=== PATIENT | male | born 1930 | race Two or more races ===

== ENCOUNTER 2020-03-19 13:36 | Inpatient (IN) | payer MEDICARE, OTHER ==
[2020-03-19] VITALS (8 sets, daily range): BP systolic 109–128; BP diastolic 40–53
[~2020-03-19] VITALS: Ht 170.2 cm; Wt 78.8 kg
[~2020-03-19 13:36] MED LIST: ALBUAER3 IN; ATOR20TA PO; CARV25TA55 PO; DOXY-286 PO; FLUC200T35 PO; FURO1TAB33 PO; LINA5TAB PO; LISI40TA PO; MINO10TA2 PO; PANT40T PO
[2020-03-19 14:31] LABS: Basophils # (auto) 0 10 ^3/uL (0-0.2); Eosinophils # (auto) 0.2 10 ^3/uL (0-0.8); Lymphocytes # (auto) 0.7 10 ^3/uL (0.4-5.4); Monocytes # (auto) 0.4 10 ^3/uL (0-1.3); Nucleated Red Blood Cells % 0.1 %
[2020-03-19 14:33] LABS: Basophils % (auto) 0.9 % (0.0-2.0); Eosinophils % (auto) 5.6 % (0.0-7.0); Hematocrit 19.2 % (41.0-53.0); Lymphocytes % (auto) 17.5 % (10.0-50.0); Mean Corpuscular Hgb Conc. 32.8 g/dL (32.0-36.0); Mean Corpuscular Volume 94.7 fL (80.0-100.0); Monocytes % (auto) 10.6 % (0.0-12.0); Neutrophils # (auto) 2.7 10 ^3/uL (1.6-8.6); Neutrophils % (auto) 65.4 % (37.0-80.0); Platelet Count (auto) 107 10^3/uL (140-450); Red Blood Cells 2.03 10^6/uL (4.5-5.90); Red Cell Distribution Width 18.1 % (11.8-14.3); White Blood Cell 4.1 10^3/uL (4.4-10.8)
[2020-03-19 14:39] LABS: Hemoglobin 6.3 g/dL (13.5-17.5)
[2020-03-19 14:47] LABS: Albumin 3.5 g/dL (3.4-5.0); Calcium 8.1 mg/dL (8.5-10.1); Potassium 4.6 mmol/L (3.5-5.1)
[2020-03-19 14:51] LABS: BUN/Creatinine Ratio 26.6; Bilirubin, Total 0.3 mg/dL (0.2-1.0); Total Protein 6.5 g/dL (6.4-8.2)
[2020-03-19] MEDS ORDERED: TEMAZEPAM 15 MG CAP PO PRN (20:45)
[2020-03-19] MEDS ORDERED: ONDANSETRON HCL 4 MG/2 ML VIAL IV PRN (20:45)
[2020-03-19] MEDS ORDERED: ACETAMINOPHEN 325 MG TAB PO PRN (20:45)
[2020-03-19] MEDS ORDERED: MORPHINE SULF INJ 2 MG/ML SYRINGE 1ML IV PRN (21:00)
[2020-03-19] MEDS ORDERED: NITROGLYCERIN 0.4 MG SL TAB SL PRN (21:00)
[2020-03-19] MEDS: CARVEDILOL 12.5 MG TAB PO SCH (22:30)
[2020-03-19] MEDS: ATORVASTATIN 20 MG TAB PO SCH (22:31)
[2020-03-19] MEDS: ALBUTEROL SULF 2.5 MG/0.5ML(0.5%) NEB SOLN NEB SCH (23:45)
[2020-03-20] VITALS (10 sets, daily range): BP systolic 91–133; BP diastolic 36–54
[2020-03-20] MEDS ORDERED: DEXTROSE (50%) 50ML SYRG IV PRN (01:00)
[2020-03-20] MEDS ORDERED: FUROSEMIDE 20 MG/2 ML VIAL IV ONE (01:00)
[2020-03-20] MEDS ORDERED: SODIUM CHLORIDE 0.9 % NEB SOLN 3ML NEB ONE ×2 (05:23→11:02)
[2020-03-20 05:34] LABS: Basophils # (auto) 0 10 ^3/uL (0-0.2); Basophils % (auto) 0.7 % (0.0-2.0); Eosinophils # (auto) 0.3 10 ^3/uL (0-0.8); Eosinophils % (auto) 5.7 % (0.0-7.0); Lymphocytes # (auto) 0.8 10 ^3/uL (0.4-5.4); Monocytes # (auto) 0.5 10 ^3/uL (0-1.3); Nucleated Red Blood Cells % 0.1 %
[2020-03-20] MEDS: ALBUTEROL SULF 2.5 MG/0.5ML(0.5%) NEB SOLN NEB SCH ×4 (05:36→23:59)
[2020-03-20 05:37] LABS: Hematocrit 24.2 % (41.0-53.0); Hemoglobin 8.1 g/dL (13.5-17.5); Lymphocytes % (auto) 16.5 % (10.0-50.0); Mean Corpuscular Hgb Conc. 33.3 g/dL (32.0-36.0); Monocytes % (auto) 9.9 % (0.0-12.0); Neutrophils # (auto) 3.4 10 ^3/uL (1.6-8.6); Neutrophils % (auto) 67.2 % (37.0-80.0); Platelet Count (auto) 99 10^3/uL (140-450); Red Blood Cells 2.61 10^6/uL (4.5-5.90); Red Cell Distribution Width 17.9 % (11.8-14.3)
[2020-03-20 05:41] LABS: Potassium 4.4 mmol/L (3.5-5.1)
[2020-03-20] MEDS: InsuLIN REG 1unit/0.01ml Soln (100units/ml) SC SCH ×4 (06:02→22:00)
[2020-03-20] MEDS: ACCU-CHEK COMFORT CURVE STRIP VI SCH ×4 (06:02→22:29)
[2020-03-20] MEDS: PANTOPRAZOLE 40 MG TAB PO SCH (09:36)
[2020-03-20] MEDS: CARVEDILOL 12.5 MG TAB PO SCH ×2 (09:38→22:28)
[2020-03-20] MEDS: FUROSEMIDE 20 MG TAB PO SCH (09:39)
[2020-03-20] MEDS: LISINOPRIL 20 MG TAB PO SCH (09:39)
[2020-03-20] MEDS: ATORVASTATIN 20 MG TAB PO SCH (22:28)
[2020-03-21 05:11] VITALS: BP 127/57
[2020-03-21] MEDS: InsuLIN REG 1unit/0.01ml Soln (100units/ml) SC SCH ×4 (06:36→22:16)
[2020-03-21] MEDS: ACCU-CHEK COMFORT CURVE STRIP VI SCH ×4 (06:36→22:20)
[2020-03-21] MEDS: ALBUTEROL SULF 2.5 MG/0.5ML(0.5%) NEB SOLN NEB SCH ×4 (07:59→23:51)
[2020-03-21 09:28] VITALS: BP 115/46
[2020-03-21] MEDS: CARVEDILOL 12.5 MG TAB PO SCH ×2 (09:42→22:18)
[2020-03-21] MEDS: FUROSEMIDE 20 MG TAB PO SCH (09:42)
[2020-03-21] MEDS: PANTOPRAZOLE 40 MG TAB PO SCH (09:42)
[2020-03-21] MEDS: LISINOPRIL 20 MG TAB PO SCH (09:42)
[2020-03-21 11:25] LABS: Basophils # (auto) 0 10 ^3/uL (0-0.2); Basophils % (auto) 0.5 % (0.0-2.0); Eosinophils # (auto) 0.1 10 ^3/uL (0-0.8); Hemoglobin 7.7 g/dL (13.5-17.5); Lymphocytes # (auto) 0.5 10 ^3/uL (0.4-5.4); Neutrophils # (auto) 3.7 10 ^3/uL (1.6-8.6)
[2020-03-21 11:26] LABS: Eosinophils % (auto) 2.6 % (0.0-7.0); Hematocrit 23.4 % (41.0-53.0); Mean Corpuscular Hemoglobin 30.8 pg (28.0-32.0); Mean Corpuscular Hgb Conc. 32.7 g/dL (32.0-36.0); Monocytes # (auto) 0.6 10 ^3/uL (0-1.3); Monocytes % (auto) 11.7 % (0.0-12.0); Neutrophils % (auto) 74.2 % (37.0-80.0); Nucleated Red Blood Cells % 0.2 %; Platelet Count (auto) 98 10^3/uL (140-450); Red Blood Cells 2.49 10^6/uL (4.5-5.90)
[2020-03-21 13:30] VITALS: BP 120/48
[2020-03-21 17:03] VITALS: BP 118/64
[2020-03-21 22:00] VITALS: BP 161/59
[2020-03-21] MEDS: ATORVASTATIN 20 MG TAB PO SCH (22:18)
[2020-03-22 04:45] LABS: Basophils # (auto) 0 10 ^3/uL (0-0.2); Eosinophils # (auto) 0.2 10 ^3/uL (0-0.8); Hematocrit 23.3 % (41.0-53.0); Hemoglobin 7.7 g/dL (13.5-17.5); Lymphocytes # (auto) 0.9 10 ^3/uL (0.4-5.4); Monocytes # (auto) 0.8 10 ^3/uL (0-1.3); Neutrophils # (auto) 4.3 10 ^3/uL (1.6-8.6); Red Cell Distribution Width 17.8 % (11.8-14.3); White Blood Cell 6.2 10^3/uL (4.4-10.8)
[2020-03-22 04:47] LABS: Basophils % (auto) 0.4 % (0.0-2.0); Lymphocytes % (auto) 13.9 % (10.0-50.0); Mean Corpuscular Hgb Conc. 33.1 g/dL (32.0-36.0); Mean Corpuscular Volume 93.8 fL (80.0-100.0); Neutrophils % (auto) 69.7 % (37.0-80.0); Platelet Count (auto) 111 10^3/uL (140-450); Red Blood Cells 2.49 10^6/uL (4.5-5.90)
[2020-03-22 04:52] LABS: INR 1.12 (0.9-1.15); Partial Thromboplastin Time 29.9 sec (23.64-32.05)
[2020-03-22 05:00] VITALS: BP 136/41
[2020-03-22] MEDS: ACCU-CHEK COMFORT CURVE STRIP VI SCH ×4 (06:00→22:00)
[2020-03-22] MEDS: InsuLIN REG 1unit/0.01ml Soln (100units/ml) SC SCH ×4 (06:07→22:00)
[2020-03-22] MEDS: ALBUTEROL SULF 2.5 MG/0.5ML(0.5%) NEB SOLN NEB SCH ×2 (06:18→19:11)
[2020-03-22] MEDS ORDERED: guaiFENesin-DM 100/10mg/5ml SYR PO PRN (08:00)
[2020-03-22 09:00] VITALS: BP 156/59
[2020-03-22] MEDS ORDERED: PROPOFOL 10 MG/ML 20 ML IV ONE (09:46)
[2020-03-22] MEDS ORDERED: ONDANSETRON HCL 4 MG/2 ML VIAL ONE (09:46)
[2020-03-22] MEDS ORDERED: IPRATROPIUM BROM 0.5 MG/2.5ML INH SOL NEB ONE (10:00)
[2020-03-22] MEDS ORDERED: ALBUTEROL SULF 2.5 MG/0.5ML(0.5%) NEB SOLN NEB ONE (10:00)
[2020-03-22] MEDS: FUROSEMIDE 20 MG TAB PO SCH (12:19)
[2020-03-22] MEDS: CARVEDILOL 12.5 MG TAB PO SCH ×2 (12:19→22:00)
[2020-03-22] MEDS: PANTOPRAZOLE 40 MG TAB PO SCH (12:19)
[2020-03-22] MEDS: LISINOPRIL 20 MG TAB PO SCH (12:19)
[2020-03-22 12:59] VITALS: BP 140/107
[2020-03-22 16:55] VITALS: BP 126/48
[2020-03-22 19:56] VITALS: BP 126/48
[2020-03-22] MEDS: ATORVASTATIN 20 MG TAB PO SCH (22:00)
[2020-03-22 22:09] VITALS: BP 118/51
[2020-03-23] MEDS: ALBUTEROL SULF 2.5 MG/0.5ML(0.5%) NEB SOLN NEB SCH ×3 (00:22→11:24)
[2020-03-23 05:00] VITALS: BP 122/60
[2020-03-23] MEDS: InsuLIN REG 1unit/0.01ml Soln (100units/ml) SC SCH ×2 (06:38→11:30)
[2020-03-23] MEDS: ACCU-CHEK COMFORT CURVE STRIP VI SCH ×2 (06:39→11:30)
[2020-03-23 07:02] LABS: Basophils # (auto) 0 10 ^3/uL (0-0.2); Eosinophils # (auto) 0.1 10 ^3/uL (0-0.8); Hemoglobin 7.9 g/dL (13.5-17.5); Lymphocytes # (auto) 0.7 10 ^3/uL (0.4-5.4); Monocytes # (auto) 0.7 10 ^3/uL (0-1.3); Nucleated Red Blood Cells % 0.1 %; White Blood Cell 6.7 10^3/uL (4.4-10.8)
[2020-03-23 07:04] LABS: Basophils % (auto) 0.5 % (0.0-2.0); Hematocrit 23.7 % (41.0-53.0); Lymphocytes % (auto) 10.2 % (10.0-50.0); Mean Corpuscular Hemoglobin 31.2 pg (28.0-32.0); Mean Corpuscular Hgb Conc. 33.4 g/dL (32.0-36.0); Mean Corpuscular Volume 93.3 fL (80.0-100.0); Monocytes % (auto) 10.2 % (0.0-12.0); Neutrophils # (auto) 5.3 10 ^3/uL (1.6-8.6); Neutrophils % (auto) 78.1 % (37.0-80.0); Platelet Count (auto) 114 10^3/uL (140-450); Red Blood Cells 2.54 10^6/uL (4.5-5.90); Red Cell Distribution Width 17.3 % (11.8-14.3)
[2020-03-23 09:00] VITALS: BP 143/42
[2020-03-23] MEDS: FUROSEMIDE 20 MG TAB PO SCH (09:30)
[2020-03-23] MEDS: CARVEDILOL 12.5 MG TAB PO SCH (09:30)
[2020-03-23] MEDS: PANTOPRAZOLE 40 MG TAB PO SCH (09:30)
[2020-03-23] MEDS: LISINOPRIL 20 MG TAB PO SCH (09:31)
[2020-03-23 11:34] VITALS: BP 143/42
== END 2020-03-23 12:45 | disposition home or self-care (01) | DRG 812 ==
LOC: ER 13:36 → EDBD 13:36 → TELE 13:37 → TELE-CENTR 23:25
PROVIDERS: ADMIT Nurse Practitioner; ATTEND Family Medicine
PROC: 30233N1 Transfusion of Nonautologous Red Blood Cells into Peripheral Vein, Percutaneous Approach (ICD-10-PCS; 2020-03-19)
PROC: 0DJ08ZZ Inspection of Upper Intestinal Tract, Via Natural or Artificial Opening Endoscopic (ICD-10-PCS; principal; 2020-03-22 09:45)
DX: D64.9 Anemia, unspecified (principal); N17.9 Acute kidney failure, unspecified; I13.0 Hypertensive heart and chronic kidney disease with heart failure and stage 1 through stage 4 chronic kidney disease, or unspecified chronic kidney disease; D61.818 Other pancytopenia; N18.9 Chronic kidney disease, unspecified; I50.9 Heart failure, unspecified; J44.9 Chronic obstructive pulmonary disease, unspecified; E11.22 Type 2 diabetes mellitus with diabetic chronic kidney disease; E78.00 Pure hypercholesterolemia, unspecified; E78.5 Hyperlipidemia, unspecified; Z95.2 Presence of prosthetic heart valve; Z03.818 Encounter for observation for suspected exposure to other biological agents ruled out
CPT/HCPCS: 36415; 43235; 71045; 80048; 80053; 82270; 82962; 83010; 83615; 85025; 85045; 85610; 85730; 86850; 86880; 86900; 86901; 86920; 93005; 94640; G0378; J1815; J2405; J2704

== ENCOUNTER 2021-06-30 06:44 | Inpatient (IN) | payer MEDICARE, OTHER ==
[~2021-06-30] VITALS: Ht 167.6 cm; Wt 89.0 kg
[~2021-06-30 06:44] MED LIST changes: -LISI40TA PO; +LISI40TA11 PO
[2021-06-30] MEDS ORDERED: ASPirin 81 mg TAB PO ONE (07:45)
[2021-06-30 08:07] LABS: Basophils # (auto) 0 10 ^3/uL (0-0.2); Basophils % (auto) 0.5 % (0.0-2.0); Hemoglobin 8.4 g/dL (13.5-17.5); Lymphocytes # (auto) 0.7 10 ^3/uL (0.4-5.4); Monocytes # (auto) 0.6 10 ^3/uL (0-1.3); Monocytes % (auto) 9.7 % (0.0-12.0); Nucleated Red Blood Cells % 0.1 %
[2021-06-30 08:12] LABS: Eosinophils # (auto) 0.2 10 ^3/uL (0-0.8); Eosinophils % (auto) 3.6 % (0.0-7.0); Hematocrit 25.2 % (41.0-53.0); Lymphocytes % (auto) 10.5 % (10.0-50.0); Mean Corpuscular Hemoglobin 31.7 pg (28.0-32.0); Mean Corpuscular Hgb Conc. 33.5 g/dL (32.0-36.0); Mean Corpuscular Volume 94.8 fL (80.0-100.0); Neutrophils % (auto) 75.7 % (37.0-80.0); Red Blood Cells 2.66 10^6/uL (4.5-5.90); Red Cell Distribution Width 16.1 % (11.8-14.3); White Blood Cell 6.6 10^3/uL (4.4-10.8)
[2021-06-30 08:15] LABS: Albumin 3.1 g/dL (3.4-5.0); Anion Gap 2 (5-15); Blood Urea Nitrogen 55 mg/dL (7-18); Carbon Dioxide 28 mmol/L (21-32); Chloride 110 mmol/L (98-107); Glucose 147 mg/dL (74-106); Potassium 5.1 mmol/L (3.5-5.1); Sodium 140 mmol/L (136-145)
[2021-06-30 08:22] LABS: Alanine Aminotransferase 25 U/L (16-61); Alkaline Phosphatase 77 U/L (45-117); Aspartate Aminotransferase 15 U/L (15-37); Bilirubin, Total 0.8 mg/dL (0.2-1.0); GFR African American 30 mL/min; GFR Non-African American 25 mL/min; Total Protein 6.5 g/dL (6.4-8.2)
[2021-06-30] MEDS ORDERED: ONDANSETRON HCL 4 MG/2 ML VIAL IV PRN (09:45)
[2021-06-30] MEDS ORDERED: NITROGLYCERIN 0.4 MG SL TAB SL PRN (09:45)
[2021-06-30] MEDS ORDERED: HYDROcodone-ACET 5/325MG TAB PO PRN (09:45)
[2021-06-30] MEDS ORDERED: MORPHINE SULFATE INJECTION 2 MG/ML SYRG IV PRN (09:45)
[2021-06-30] MEDS ORDERED: ACETAMINOPHEN 500 MG TAB PO PRN (09:45)
[2021-06-30] MEDS ORDERED: DEXTROSE (50%) 50ML SYRG IV PRN (09:45)
[2021-06-30] MEDS: FUROSEMIDE 20 MG/2 ML VIAL IV SCH (10:18)
[2021-06-30] MEDS: PANTOPRAZOLE 40 MG TAB PO SCH (10:18)
[2021-06-30] MEDS: MINOXIDIL 10 MG TAB PO SCH (10:18)
[2021-06-30] MEDS: CARVEDILOL 12.5 MG TAB PO SCH ×2 (10:18→22:25)
[2021-06-30 10:35] LABS: Cholesterol 94 mg/dL (< 200); HDL Cholesterol 49 mg/dL (40-59); LDL Cholesterol 42 mg/dL (< 100); Triglycerides 89 mg/dL (< 150)
[2021-06-30] MEDS: ACCU-CHEK COMFORT CURVE STRIP VI SCH ×3 (12:23→22:28)
[2021-06-30] MEDS: InsuLIN REG 1unit/0.01ml Soln (100units/ml) SC SCH ×3 (12:25→22:27)
[2021-06-30 14:22] VITALS: BP 110/62
[2021-06-30] MEDS: SODIUM CHLOR 0.9% PF (SALINE LOCK) 10ML VIAL/SYR IV SCH ×2 (17:04→22:24)
[2021-06-30 22:00] VITALS: BP 128/45
[2021-06-30] MEDS: ATORVASTATIN 20 MG TAB PO SCH (22:25)
[2021-07-01 04:54] VITALS: BP 123/50
[2021-07-01 05:59] LABS: Basophils # (auto) 0 10 ^3/uL (0-0.2); Eosinophils # (auto) 0.1 10 ^3/uL (0-0.8); Lymphocytes # (auto) 0.6 10 ^3/uL (0.4-5.4); Nucleated Red Blood Cells % 0.1 %; Red Blood Cells 2.54 10^6/uL (4.5-5.90); Red Cell Distribution Width 16.1 % (11.8-14.3)
[2021-07-01] MEDS: SODIUM CHLOR 0.9% PF (SALINE LOCK) 10ML VIAL/SYR IV SCH ×3 (06:01→21:47)
[2021-07-01 06:02] LABS: Basophils % (auto) 0.5 % (0.0-2.0); Eosinophils % (auto) 1.6 % (0.0-7.0); Hematocrit 23.8 % (41.0-53.0); Lymphocytes % (auto) 10.4 % (10.0-50.0); Mean Corpuscular Hemoglobin 31.3 pg (28.0-32.0); Mean Corpuscular Hgb Conc. 33.4 g/dL (32.0-36.0); Mean Corpuscular Volume 93.7 fL (80.0-100.0); Monocytes # (auto) 0.6 10 ^3/uL (0-1.3); Monocytes % (auto) 10.4 % (0.0-12.0); Neutrophils # (auto) 4.7 10 ^3/uL (1.6-8.6); Neutrophils % (auto) 77.1 % (37.0-80.0); White Blood Cell 6.2 10^3/uL (4.4-10.8)
[2021-07-01] MEDS: ACCU-CHEK COMFORT CURVE STRIP VI SCH ×4 (06:02→21:48)
[2021-07-01] MEDS: InsuLIN REG 1unit/0.01ml Soln (100units/ml) SC SCH ×4 (06:07→21:56)
[2021-07-01 06:27] LABS: BUN/Creatinine Ratio 21.5
[2021-07-01 06:44] LABS: Potassium 6.1 mmol/L (3.5-5.1)
[2021-07-01 09:00] VITALS: BP 115/57
[2021-07-01] MEDS: FUROSEMIDE 20 MG/2 ML VIAL IV SCH (10:25)
[2021-07-01] MEDS: CARVEDILOL 12.5 MG TAB PO SCH ×2 (10:25→21:47)
[2021-07-01] MEDS: MINOXIDIL 10 MG TAB PO SCH (10:25)
[2021-07-01] MEDS: PANTOPRAZOLE 40 MG TAB PO SCH (10:25)
[2021-07-01 13:00] VITALS: BP 119/36
[2021-07-01] MEDS ORDERED: SODIUM ZIRCONIUM CYCL 10 GM PAK PO ONE (14:45)
[2021-07-01 17:00] VITALS: BP 108/38
[2021-07-01] MEDS: BUMETANIDE 2.5mg/10ml (0.25 mg/ml) INJ IV SCH (18:38)
[2021-07-01] MEDS: SODIUM ZIRCONIUM CYCL 10 GM PAK PO SCH ×2 (18:38→21:48)
[2021-07-01 21:39] VITALS: BP 114/55
[2021-07-01] MEDS: ATORVASTATIN 20 MG TAB PO SCH (21:47)
[2021-07-02 04:55] VITALS: BP 90/40
[2021-07-02] MEDS: InsuLIN REG 1unit/0.01ml Soln (100units/ml) SC SCH ×4 (06:32→21:57)
[2021-07-02] MEDS: ACCU-CHEK COMFORT CURVE STRIP VI SCH ×4 (06:33→21:44)
[2021-07-02] MEDS: SODIUM CHLOR 0.9% PF (SALINE LOCK) 10ML VIAL/SYR IV SCH ×3 (06:33→21:43)
[2021-07-02] MEDS: SODIUM ZIRCONIUM CYCL 10 GM PAK PO SCH ×2 (06:37→14:00)
[2021-07-02 07:23] LABS: Hematocrit 21.6 % (41.0-53.0); Hemoglobin 7.2 g/dL (13.5-17.5)
[2021-07-02 07:29] LABS: Anion Gap 7 (5-15); BUN/Creatinine Ratio 18.1; Blood Urea Nitrogen 76 mg/dL (7-18); Calcium 7.9 mg/dL (8.5-10.1); Carbon Dioxide 28 mmol/L (21-32); Chloride 106 mmol/L (98-107); GFR African American 17 mL/min; GFR Non-African American 14 mL/min; Glucose 84 mg/dL (74-106); Magnesium 2.3 mg/dL (1.6-2.6); Potassium 4.9 mmol/L (3.5-5.1); Sodium 141 mmol/L (136-145)
[2021-07-02 09:00] VITALS: BP 99/52
[2021-07-02] MEDS: CARVEDILOL 12.5 MG TAB PO SCH (10:38)
[2021-07-02] MEDS: BUMETANIDE 2.5mg/10ml (0.25 mg/ml) INJ IV SCH (10:38)
[2021-07-02] MEDS: PANTOPRAZOLE 40 MG TAB PO SCH (11:54)
[2021-07-02 13:00] VITALS: BP 97/49
[2021-07-02 17:00] VITALS: BP 105/45
[2021-07-02] MEDS ORDERED: SODIUM CHLORIDE 0.9% 1,000 ML IV SCH (18:00)
[2021-07-02] MEDS ORDERED: EPOETIN ALFA-EPBX 10,000 UNIT/1ML VIAL SC ONE (21:00)
[2021-07-02] MEDS: ATORVASTATIN 20 MG TAB PO SCH (21:42)
[2021-07-02] MEDS: CARVEDILOL 3.125 MG TAB PO SCH (21:43)
[2021-07-02 22:00] VITALS: BP 113/53
[2021-07-03 05:00] VITALS: BP 107/45
[2021-07-03] MEDS: SODIUM CHLOR 0.9% PF (SALINE LOCK) 10ML VIAL/SYR IV SCH ×3 (05:44→22:15)
[2021-07-03] MEDS: ACCU-CHEK COMFORT CURVE STRIP VI SCH ×4 (06:25→22:15)
[2021-07-03] MEDS: InsuLIN REG 1unit/0.01ml Soln (100units/ml) SC SCH ×4 (06:25→22:17)
[2021-07-03 06:34] LABS: Basophils # (auto) 0 10 ^3/uL (0-0.2); Eosinophils # (auto) 0.2 10 ^3/uL (0-0.8); Hemoglobin 7.4 g/dL (13.5-17.5); Lymphocytes # (auto) 0.6 10 ^3/uL (0.4-5.4); Monocytes # (auto) 0.6 10 ^3/uL (0-1.3); Neutrophils # (auto) 4.2 10 ^3/uL (1.6-8.6); Neutrophils % (auto) 74.6 % (37.0-80.0); Red Blood Cells 2.33 10^6/uL (4.5-5.90)
[2021-07-03 06:37] LABS: Basophils % (auto) 0.5 % (0.0-2.0); Eosinophils % (auto) 3.4 % (0.0-7.0); Hematocrit 22.3 % (41.0-53.0); Lymphocytes % (auto) 10.8 % (10.0-50.0); Mean Corpuscular Hemoglobin 31.8 pg (28.0-32.0); Mean Corpuscular Hgb Conc. 33.2 g/dL (32.0-36.0); Mean Corpuscular Volume 95.7 fL (80.0-100.0); Monocytes % (auto) 10.7 % (0.0-12.0); Nucleated Red Blood Cells % 0.2 %; Red Cell Distribution Width 15.7 % (11.8-14.3); White Blood Cell 5.7 10^3/uL (4.4-10.8)
[2021-07-03 06:47] LABS: BUN/Creatinine Ratio 20.3; Potassium 4.6 mmol/L (3.5-5.1)
[2021-07-03 07:22] LABS: Urine Bacteria FEW /hpf (None Seen); Urine Blood 3+ /uL (Negative); Urine Hyaline Cast FEW /lpf (0 - 2); Urine Mucus FEW (None Seen); Urine Specific Gravity 1.014 (1.001-1.035); Urine WBC 198 /hpf (0 - 3); Urine WBC Clumps PRESENT /hpf (None Seen)
[2021-07-03 09:00] VITALS: BP 99/41
[2021-07-03] MEDS: ENOXAPARIN SOD 30 MG/0.3 ML SYRINGE SC SCH (09:57)
[2021-07-03] MEDS: PANTOPRAZOLE 40 MG TAB PO SCH (09:58)
[2021-07-03 13:00] VITALS: BP 131/67
[2021-07-03] MEDS: CARVEDILOL 3.125 MG TAB PO SCH ×2 (14:43→22:15)
[2021-07-03] MEDS ORDERED: cefTRIAXone 1GM/50ML D5W 50 ML IV ONE (15:00)
[2021-07-03 16:50] VITALS: BP 128/52
[2021-07-03] MEDS: SODIUM CHLORIDE 0.9% 1,000 ML IV SCH (18:48)
[2021-07-03 22:00] VITALS: BP 127/56
[2021-07-03] MEDS: ATORVASTATIN 20 MG TAB PO SCH (22:15)
[2021-07-04] VITALS (8 sets, daily range): BP systolic 79–184; BP diastolic 31–81
[2021-07-04] MEDS: SODIUM CHLOR 0.9% PF (SALINE LOCK) 10ML VIAL/SYR IV SCH ×3 (05:54→21:51)
[2021-07-04] MEDS: ACCU-CHEK COMFORT CURVE STRIP VI SCH ×4 (06:28→21:51)
[2021-07-04] MEDS: InsuLIN REG 1unit/0.01ml Soln (100units/ml) SC SCH ×4 (06:28→21:52)
[2021-07-04 07:53] LABS: Hematocrit 22.3 % (41.0-53.0); Hemoglobin 7.4 g/dL (13.5-17.5)
[2021-07-04 08:12] LABS: Calcium 7.8 mg/dL (8.5-10.1); Potassium 5.1 mmol/L (3.5-5.1)
[2021-07-04 08:15] LABS: BUN/Creatinine Ratio 22.2
[2021-07-04] MEDS: SODIUM CHLORIDE 0.9% 1,000 ML IV SCH (09:55)
[2021-07-04] MEDS: ENOXAPARIN SOD 30 MG/0.3 ML SYRINGE SC SCH (10:07)
[2021-07-04] MEDS: cefTRIAXone 1GM/50ML D5W 50 ML IV SCH (10:07)
[2021-07-04] MEDS: CARVEDILOL 3.125 MG TAB PO SCH ×2 (10:08→21:51)
[2021-07-04] MEDS: PANTOPRAZOLE 40 MG TAB PO SCH (10:08)
[2021-07-04] MEDS: ATORVASTATIN 20 MG TAB PO SCH (21:51)
[2021-07-04] MEDS ORDERED: PROPOFOL 100 ML IV ONE (22:33)
[2021-07-04] MEDS ORDERED: NOREPINEPHRINE 8 MG/250ML KIT 250 ML IV ONE (22:35)
[2021-07-05] VITALS (101 sets, daily range): BP systolic 85–193; BP diastolic 15–55
[2021-07-05] MEDS: fentaNYL Drip 2500mCg/250mlNS 250 ML IV SCH (02:12)
[2021-07-05] MEDS: PROPOFOL 100 ML IV SCH ×2 (02:12→21:41)
[2021-07-05] MEDS: MIDAZOLAM DRIP 50 mg/50mL 50 ML IV SCH (02:14)
[2021-07-05] MEDS: SODIUM CHLORIDE 0.9% 1,000 ML IV SCH ×3 (02:35→23:32)
[2021-07-05] MEDS: SODIUM CHLOR 0.9% PF (SALINE LOCK) 10ML VIAL/SYR IV SCH ×3 (04:33→21:55)
[2021-07-05 05:08] LABS: Basophils # (auto) 0 10 ^3/uL (0-0.2); Basophils % (auto) 0.4 % (0.0-2.0); Hemoglobin 7.3 g/dL (13.5-17.5); Lymphocytes # (auto) 0.3 10 ^3/uL (0.4-5.4); Mean Corpuscular Hemoglobin 30.9 pg (28.0-32.0); Monocytes # (auto) 0.6 10 ^3/uL (0-1.3); Nucleated Red Blood Cells % 0.1 %; Red Blood Cells 2.37 10^6/uL (4.5-5.90); White Blood Cell 5.7 10^3/uL (4.4-10.8)
[2021-07-05 05:12] LABS: Eosinophils # (auto) 0.1 10 ^3/uL (0-0.8); Eosinophils % (auto) 0.9 % (0.0-7.0); Lymphocytes % (auto) 5.8 % (10.0-50.0); Mean Corpuscular Hgb Conc. 33.1 g/dL (32.0-36.0); Mean Corpuscular Volume 93.2 fL (80.0-100.0); Monocytes % (auto) 10.6 % (0.0-12.0); Neutrophils # (auto) 4.7 10 ^3/uL (1.6-8.6); Neutrophils % (auto) 82.3 % (37.0-80.0); Red Cell Distribution Width 15.9 % (11.8-14.3)
[2021-07-05 05:55] LABS: Potassium 4.1 mmol/L (3.5-5.1)
[2021-07-05 06:00] LABS: Albumin 2.5 g/dL (3.4-5.0); BUN/Creatinine Ratio 26.4; Calcium 7.9 mg/dL (8.5-10.1)
[2021-07-05 06:03] LABS: Bilirubin, Total 0.6 mg/dL (0.2-1.0)
[2021-07-05] MEDS: InsuLIN REG 1unit/0.01ml Soln (100units/ml) SC SCH ×4 (06:18→21:55)
[2021-07-05] MEDS: ACCU-CHEK COMFORT CURVE STRIP VI SCH ×4 (06:19→21:55)
[2021-07-05] MEDS: cefTRIAXone 1GM/50ML D5W 50 ML IV SCH (09:38)
[2021-07-05] MEDS: CARVEDILOL 3.125 MG TAB PO SCH (09:38)
[2021-07-05] MEDS: PANTOPRAZOLE 40 MG TAB PO SCH (09:38)
[2021-07-05] MEDS: ENOXAPARIN SOD 30 MG/0.3 ML SYRINGE SC SCH (09:39)
[2021-07-05] MEDS: amLODIPine BESYLATE 5 MG TAB PO SCH (16:45)
[2021-07-05] MEDS: ATORVASTATIN 20 MG TAB PO SCH (21:50)
[2021-07-06] VITALS (81 sets, daily range): BP systolic 119–179; BP diastolic 22–61
[2021-07-06] MEDS: MIDAZOLAM DRIP 50 mg/50mL 50 ML IV SCH (00:30)
[2021-07-06] MEDS: fentaNYL Drip 2500mCg/250mlNS 250 ML IV SCH (02:40)
[2021-07-06 05:04] LABS: Basophils # (auto) 0 10 ^3/uL (0-0.2); Basophils % (auto) 1.1 % (0.0-2.0); Eosinophils # (auto) 0.4 10 ^3/uL (0-0.8); Eosinophils % (auto) 9.4 % (0.0-7.0); Hematocrit 23.3 % (41.0-53.0); Hemoglobin 7.7 g/dL (13.5-17.5); Lymphocytes # (auto) 0.5 10 ^3/uL (0.4-5.4); Lymphocytes % (auto) 11.2 % (10.0-50.0); Mean Corpuscular Hemoglobin 30.5 pg (28.0-32.0); Mean Corpuscular Volume 92.4 fL (80.0-100.0); Monocytes # (auto) 0.5 10 ^3/uL (0-1.3); Monocytes % (auto) 11.9 % (0.0-12.0); Neutrophils % (auto) 66.4 % (37.0-80.0); Nucleated Red Blood Cells % 0.1 %; Red Blood Cells 2.52 10^6/uL (4.5-5.90); Red Cell Distribution Width 16.4 % (11.8-14.3); White Blood Cell 4.5 10^3/uL (4.4-10.8)
[2021-07-06 05:36] LABS: INR 1.16 (0.9-1.15)
[2021-07-06 05:42] LABS: Albumin 2.3 g/dL (3.4-5.0); Calcium 8.1 mg/dL (8.5-10.1); Magnesium 2.5 mg/dL (1.6-2.6); Potassium 3.9 mmol/L (3.5-5.1)
[2021-07-06 05:49] LABS: Bilirubin, Total 0.6 mg/dL (0.2-1.0)
[2021-07-06] MEDS: ACCU-CHEK COMFORT CURVE STRIP VI SCH ×4 (05:50→22:00)
[2021-07-06] MEDS: InsuLIN REG 1unit/0.01ml Soln (100units/ml) SC SCH ×4 (05:50→22:00)
[2021-07-06] MEDS: SODIUM CHLOR 0.9% PF (SALINE LOCK) 10ML VIAL/SYR IV SCH ×3 (05:51→22:00)
[2021-07-06] MEDS: PROPOFOL 100 ML IV SCH ×3 (07:25→23:15)
[2021-07-06] MEDS: ENOXAPARIN SOD 30 MG/0.3 ML SYRINGE SC SCH (10:32)
[2021-07-06] MEDS: amLODIPine BESYLATE 5 MG TAB PO SCH (10:33)
[2021-07-06] MEDS: PANTOPRAZOLE 40 MG/10 ML VIAL INJ IV SCH (10:33)
[2021-07-06] MEDS: cefTRIAXone 1GM/50ML D5W 50 ML IV SCH (10:38)
[2021-07-06] MEDS ORDERED: MEROPENEM 1GM IVPB 100 ML IV ONE (12:00)
[2021-07-06] MEDS ORDERED: FUROSEMIDE 20 MG/2 ML VIAL IV ONE (12:00)
[2021-07-06] MEDS: D5W 5% 1,000 ML IV SCH (17:00)
[2021-07-06] MEDS: hydrALAZINE HCL 20 MG/ML VL IV PRN (17:31)
[2021-07-06] MEDS: ATORVASTATIN 20 MG TAB PO SCH (22:00)
[2021-07-06] MEDS: MEROPENEM 500MG IVPB 50 ML IV SCH (22:23)
[2021-07-07] VITALS (73 sets, daily range): BP systolic 102–192; BP diastolic 17–93
[2021-07-07] MEDS: PROPOFOL 100 ML IV SCH ×3 (04:21→19:56)
[2021-07-07] MEDS: fentaNYL Drip 2500mCg/250mlNS 250 ML IV SCH (04:24)
[2021-07-07 04:45] LABS: Potassium 4.1 mmol/L (3.5-5.1)
[2021-07-07 04:52] LABS: BUN/Creatinine Ratio 27.5; Magnesium 2.5 mg/dL (1.6-2.6)
[2021-07-07] MEDS: InsuLIN REG 1unit/0.01ml Soln (100units/ml) SC SCH ×4 (07:00→21:52)
[2021-07-07 09:10] LABS: Hematocrit 25.7 % (41.0-53.0); Hemoglobin 8.4 g/dL (13.5-17.5)
[2021-07-07] MEDS: SODIUM CHLOR 0.9% PF (SALINE LOCK) 10ML VIAL/SYR IV SCH ×3 (09:25→21:47)
[2021-07-07] MEDS: ACCU-CHEK COMFORT CURVE STRIP VI SCH ×4 (09:25→21:52)
[2021-07-07] MEDS ORDERED: FUROSEMIDE 20 MG/2 ML VIAL IV ONE (09:30)
[2021-07-07 10:04] LABS: INR 1.12 (0.9-1.15)
[2021-07-07] MEDS: PANTOPRAZOLE 40 MG/10 ML VIAL INJ IV SCH (10:31)
[2021-07-07] MEDS: ENOXAPARIN SOD 30 MG/0.3 ML SYRINGE SC SCH (10:31)
[2021-07-07] MEDS: amLODIPine BESYLATE 5 MG TAB PO SCH (10:32)
[2021-07-07] MEDS: MEROPENEM 500MG IVPB 50 ML IV SCH ×2 (12:48→21:47)
[2021-07-07] MEDS: hydrALAZINE HCL 20 MG/ML VL IV PRN ×2 (13:29→22:32)
[2021-07-07] MEDS ORDERED: AMIODARONE HCL 200 MG TAB GT ONE (15:30)
[2021-07-07] MEDS: D5W 5% 1,000 ML IV SCH (18:58)
[2021-07-07] MEDS: ATORVASTATIN 20 MG TAB PO SCH (21:48)
[2021-07-07] MEDS: AMIODARONE HCL 200 MG TAB PO SCH (21:54)
[2021-07-08] VITALS (46 sets, daily range): BP systolic 121–187; BP diastolic 23–56
[2021-07-08] MEDS: fentaNYL Drip 2500mCg/250mlNS 250 ML IV SCH (00:30)
[2021-07-08] MEDS: PROPOFOL 100 ML IV SCH (04:19)
[2021-07-08 05:30] LABS: Hematocrit 26.6 % (41.0-53.0); Hemoglobin 8.7 g/dL (13.5-17.5)
[2021-07-08 05:45] LABS: Calcium 8.5 mg/dL (8.5-10.1); Potassium 3.8 mmol/L (3.5-5.1)
[2021-07-08 05:48] LABS: BUN/Creatinine Ratio 25.8
[2021-07-08] MEDS: SODIUM CHLOR 0.9% PF (SALINE LOCK) 10ML VIAL/SYR IV SCH ×3 (05:48→22:12)
[2021-07-08] MEDS: ACCU-CHEK COMFORT CURVE STRIP VI SCH ×4 (06:12→22:12)
[2021-07-08] MEDS: InsuLIN REG 1unit/0.01ml Soln (100units/ml) SC SCH ×4 (06:12→21:57)
[2021-07-08] MEDS: hydrALAZINE HCL 20 MG/ML VL IV PRN ×2 (06:37→19:25)
[2021-07-08] MEDS: PANTOPRAZOLE 40 MG/10 ML VIAL INJ IV SCH (09:25)
[2021-07-08] MEDS: AMIODARONE HCL 200 MG TAB PO SCH ×2 (09:26→21:56)
[2021-07-08] MEDS: amLODIPine BESYLATE 5 MG TAB PO SCH (09:27)
[2021-07-08] MEDS: ENOXAPARIN SOD 30 MG/0.3 ML SYRINGE SC SCH (09:27)
[2021-07-08] MEDS ORDERED: MEROPENEM 1GM IVPB 100 ML IV SCH (10:00)
[2021-07-08] MEDS ORDERED: levoFLOXacin 500MG 100 ML IV ONE (12:30)
[2021-07-08] MEDS ORDERED: FUROSEMIDE 20 MG/2 ML VIAL IV ONE (14:30)
[2021-07-08] MEDS ORDERED: IPRATROPIUM BROM 0.5 MG/2.5ML INH SOL NEB PRN (14:30)
[2021-07-08] MEDS ORDERED: ALBUTEROL SULF 2.5 MG/0.5ML(0.5%) NEB SOLN NEB PRN (14:30)
[2021-07-08] MEDS: D5W 5% 1,000 ML IV SCH (17:00)
[2021-07-08] MEDS: ALBUTEROL SULF 2.5 MG/0.5ML(0.5%) NEB SOLN NEB SCH ×2 (19:10→22:31)
[2021-07-08] MEDS: IPRATROPIUM BROM 0.5 MG/2.5ML INH SOL NEB SCH ×2 (19:10→22:31)
[2021-07-08] MEDS: ATORVASTATIN 20 MG TAB PO SCH (21:56)
[2021-07-09] VITALS (17 sets, daily range): BP systolic 98–177; BP diastolic 41–74
[2021-07-09] MEDS: IPRATROPIUM BROM 0.5 MG/2.5ML INH SOL NEB SCH ×6 (02:08→21:52)
[2021-07-09 05:41] LABS: Basophils # (auto) 0 10 ^3/uL (0-0.2); Basophils % (auto) 0.5 % (0.0-2.0); Eosinophils # (auto) 0.1 10 ^3/uL (0-0.8); Eosinophils % (auto) 0.9 % (0.0-7.0); Hematocrit 26.6 % (41.0-53.0); Hemoglobin 8.6 g/dL (13.5-17.5); Lymphocytes # (auto) 0.4 10 ^3/uL (0.4-5.4); Lymphocytes % (auto) 5.6 % (10.0-50.0); Mean Corpuscular Hemoglobin 30.4 pg (28.0-32.0); Mean Corpuscular Hgb Conc. 32.5 g/dL (32.0-36.0); Mean Corpuscular Volume 93.7 fL (80.0-100.0); Monocytes # (auto) 0.5 10 ^3/uL (0-1.3); Monocytes % (auto) 7.1 % (0.0-12.0); Neutrophils # (auto) 5.4 10 ^3/uL (1.6-8.6); Neutrophils % (auto) 85.9 % (37.0-80.0); Red Blood Cells 2.84 10^6/uL (4.5-5.90); Red Cell Distribution Width 16.6 % (11.8-14.3); White Blood Cell 6.3 10^3/uL (4.4-10.8)
[2021-07-09 05:54] LABS: Magnesium 2.6 mg/dL (1.6-2.6); Potassium 4.2 mmol/L (3.5-5.1)
[2021-07-09 05:57] LABS: BUN/Creatinine Ratio 24.2
[2021-07-09] MEDS: ACCU-CHEK COMFORT CURVE STRIP VI SCH ×4 (06:10→21:41)
[2021-07-09] MEDS: SODIUM CHLOR 0.9% PF (SALINE LOCK) 10ML VIAL/SYR IV SCH ×3 (06:13→21:40)
[2021-07-09] MEDS: ALBUTEROL SULF 2.5 MG/0.5ML(0.5%) NEB SOLN NEB SCH ×5 (06:18→21:53)
[2021-07-09] MEDS: InsuLIN REG 1unit/0.01ml Soln (100units/ml) SC SCH ×4 (07:00→21:56)
[2021-07-09] MEDS: levoFLOXacin 250MG 50 ML IV SCH (09:31)
[2021-07-09] MEDS: PANTOPRAZOLE 40 MG/10 ML VIAL INJ IV SCH (09:31)
[2021-07-09] MEDS: AMIODARONE HCL 200 MG TAB PO SCH ×2 (09:33→21:41)
[2021-07-09] MEDS: ENOXAPARIN SOD 30 MG/0.3 ML SYRINGE SC SCH (09:34)
[2021-07-09] MEDS: amLODIPine BESYLATE 5 MG TAB PO SCH (09:34)
[2021-07-09] MEDS ORDERED: FUROSEMIDE 20 MG/2 ML VIAL IV ONE (14:30)
[2021-07-09 16:59] LABS: Urine Bacteria MOD /hpf (None Seen); Urine Blood 3+ /uL (Negative); Urine Mucus FEW (None Seen); Urine Specific Gravity 1.014 (1.001-1.035); Urine WBC 78 /hpf (0 - 3); Urine WBC Clumps PRESENT /hpf (None Seen)
[2021-07-09] MEDS: D5W 5% 1,000 ML IV SCH (17:00)
[2021-07-09] MEDS: hydrALAZINE HCL 20 MG/ML VL IV PRN (17:05)
[2021-07-09] MEDS: hydrALAZINE HCL 25 MG TAB PO SCH (21:41)
[2021-07-09] MEDS: CARVEDILOL 12.5 MG TAB PO SCH (21:41)
[2021-07-09] MEDS: ATORVASTATIN 20 MG TAB PO SCH (21:41)
[2021-07-10 04:52] VITALS: BP 152/74
[2021-07-10] MEDS: SODIUM CHLOR 0.9% PF (SALINE LOCK) 10ML VIAL/SYR IV SCH ×3 (05:41→21:20)
[2021-07-10] MEDS: hydrALAZINE HCL 25 MG TAB PO SCH ×3 (05:41→21:20)
[2021-07-10] MEDS: ACCU-CHEK COMFORT CURVE STRIP VI SCH ×4 (05:42→21:24)
[2021-07-10] MEDS: InsuLIN REG 1unit/0.01ml Soln (100units/ml) SC SCH ×4 (05:49→21:39)
[2021-07-10 06:03] LABS: Hematocrit 27.1 % (41.0-53.0); Hemoglobin 8.8 g/dL (13.5-17.5)
[2021-07-10 06:23] LABS: INR 1.13 (0.9-1.15)
[2021-07-10 06:25] LABS: Calcium 8.9 mg/dL (8.5-10.1); Potassium 3.9 mmol/L (3.5-5.1)
[2021-07-10] MEDS: IPRATROPIUM BROM 0.5 MG/2.5ML INH SOL NEB SCH ×5 (07:14→21:56)
[2021-07-10] MEDS: ALBUTEROL SULF 2.5 MG/0.5ML(0.5%) NEB SOLN NEB SCH ×5 (07:14→21:56)
[2021-07-10 08:06] VITALS: BP 143/70
[2021-07-10] MEDS: AMIODARONE HCL 200 MG TAB PO SCH ×2 (09:56→21:21)
[2021-07-10] MEDS: CARVEDILOL 12.5 MG TAB PO SCH ×2 (09:57→21:24)
[2021-07-10] MEDS: amLODIPine BESYLATE 5 MG TAB PO SCH (09:57)
[2021-07-10] MEDS: levoFLOXacin 250MG 50 ML IV SCH (09:58)
[2021-07-10] MEDS: PANTOPRAZOLE 40 MG/10 ML VIAL INJ IV SCH (09:58)
[2021-07-10] MEDS: ENOXAPARIN SOD 30 MG/0.3 ML SYRINGE SC SCH (09:58)
[2021-07-10 12:41] VITALS: BP 131/60
[2021-07-10 17:00] VITALS: BP 131/54
[2021-07-10] MEDS: ATORVASTATIN 20 MG TAB PO SCH (21:24)
[2021-07-10 22:05] VITALS: BP 144/60
[2021-07-11] MEDS: ALBUTEROL SULF 2.5 MG/0.5ML(0.5%) NEB SOLN NEB SCH ×6 (03:03→22:13)
[2021-07-11] MEDS: IPRATROPIUM BROM 0.5 MG/2.5ML INH SOL NEB SCH ×6 (03:03→22:13)
[2021-07-11 05:08] VITALS: BP 151/67
[2021-07-11] MEDS: MORPHINE SULFATE INJECTION 2 MG/ML SYRG IV PRN (05:43)
[2021-07-11 06:31] LABS: Basophils # (auto) 0 10 ^3/uL (0-0.2); Eosinophils # (auto) 0 10 ^3/uL (0-0.8); Hemoglobin 8.2 g/dL (13.5-17.5); Monocytes # (auto) 0.5 10 ^3/uL (0-1.3)
[2021-07-11 06:35] LABS: Basophils % (auto) 0.6 % (0.0-2.0); Eosinophils % (auto) 0.7 % (0.0-7.0); Hematocrit 25.3 % (41.0-53.0); Lymphocytes # (auto) 0.5 10 ^3/uL (0.4-5.4); Lymphocytes % (auto) 6.9 % (10.0-50.0); Mean Corpuscular Hemoglobin 30.1 pg (28.0-32.0); Mean Corpuscular Hgb Conc. 32.4 g/dL (32.0-36.0); Mean Corpuscular Volume 92.8 fL (80.0-100.0); Monocytes % (auto) 7.4 % (0.0-12.0); Neutrophils # (auto) 5.9 10 ^3/uL (1.6-8.6); Neutrophils % (auto) 84.4 % (37.0-80.0); Red Blood Cells 2.72 10^6/uL (4.5-5.90); Red Cell Distribution Width 16.4 % (11.8-14.3)
[2021-07-11] MEDS: hydrALAZINE HCL 25 MG TAB PO SCH ×3 (06:35→21:03)
[2021-07-11] MEDS: ACCU-CHEK COMFORT CURVE STRIP VI SCH ×4 (06:37→21:04)
[2021-07-11] MEDS: InsuLIN REG 1unit/0.01ml Soln (100units/ml) SC SCH ×4 (06:38→21:12)
[2021-07-11] MEDS: SODIUM CHLOR 0.9% PF (SALINE LOCK) 10ML VIAL/SYR IV SCH ×3 (06:43→21:02)
[2021-07-11 06:47] LABS: Potassium 4.1 mmol/L (3.5-5.1)
[2021-07-11 07:03] LABS: Albumin 2.7 g/dL (3.4-5.0); BUN/Creatinine Ratio 27.1; Calcium 8.9 mg/dL (8.5-10.1); Magnesium 2.7 mg/dL (1.6-2.6); Phosphorus 3.5 mg/dL (2.5-4.90); Total Protein 6.9 g/dL (6.4-8.2)
[2021-07-11 08:35] VITALS: BP 146/68
[2021-07-11] MEDS ORDERED: NITROGLYCERIN 2% OINT 1GM PKG TD ONE (09:30)
[2021-07-11] MEDS ORDERED: FUROSEMIDE 40 MG/4 ML VIAL IV SCH (10:00)
[2021-07-11] MEDS: ENOXAPARIN SOD 30 MG/0.3 ML SYRINGE SC SCH (10:25)
[2021-07-11] MEDS: PANTOPRAZOLE 40 MG TAB PO SCH (10:25)
[2021-07-11] MEDS: ISOSORBIDE MONONITRATE ER 60 MG TAB PO SCH (10:27)
[2021-07-11] MEDS: CARVEDILOL 12.5 MG TAB PO SCH ×2 (10:28→21:03)
[2021-07-11] MEDS: AMIODARONE HCL 200 MG TAB PO SCH ×2 (10:28→21:03)
[2021-07-11] MEDS: levoFLOXacin 250MG 50 ML IV SCH (10:29)
[2021-07-11 13:00] VITALS: BP 134/60
[2021-07-11] MEDS ORDERED: SOD CHL 0.45% 1,000 ML IV SCH (15:00)
[2021-07-11 17:00] VITALS: BP 135/69
[2021-07-11] MEDS: ATORVASTATIN 20 MG TAB PO SCH (21:04)
[2021-07-11] MEDS: HYDROcodone-ACET 5/325MG TAB PO PRN (21:04)
[2021-07-11 22:41] VITALS: BP 154/63
[2021-07-12 03:41] VITALS: BP 143/70
[2021-07-12] MEDS: SODIUM CHLOR 0.9% PF (SALINE LOCK) 10ML VIAL/SYR IV SCH ×3 (05:49→22:56)
[2021-07-12] MEDS: hydrALAZINE HCL 25 MG TAB PO SCH ×2 (05:50→14:09)
[2021-07-12] MEDS: ACCU-CHEK COMFORT CURVE STRIP VI SCH ×4 (05:50→22:58)
[2021-07-12] MEDS: InsuLIN REG 1unit/0.01ml Soln (100units/ml) SC SCH ×4 (05:56→23:00)
[2021-07-12] MEDS: ALBUTEROL SULF 2.5 MG/0.5ML(0.5%) NEB SOLN NEB SCH ×5 (06:12→22:11)
[2021-07-12] MEDS: IPRATROPIUM BROM 0.5 MG/2.5ML INH SOL NEB SCH ×5 (06:12→22:11)
[2021-07-12 07:46] LABS: Basophils # (auto) 0 10 ^3/uL (0-0.2); Eosinophils # (auto) 0.3 10 ^3/uL (0-0.8); Lymphocytes # (auto) 0.5 10 ^3/uL (0.4-5.4); Monocytes % (auto) 7.1 % (0.0-12.0); Red Cell Distribution Width 16.5 % (11.8-14.3)
[2021-07-12 07:48] LABS: Basophils % (auto) 0.7 % (0.0-2.0); Eosinophils % (auto) 4.2 % (0.0-7.0); Hematocrit 22.4 % (41.0-53.0); Hemoglobin 7.5 g/dL (13.5-17.5); Lymphocytes % (auto) 7.6 % (10.0-50.0); Mean Corpuscular Hemoglobin 31.4 pg (28.0-32.0); Mean Corpuscular Hgb Conc. 33.3 g/dL (32.0-36.0); Mean Corpuscular Volume 94.1 fL (80.0-100.0); Monocytes # (auto) 0.4 10 ^3/uL (0-1.3); Neutrophils % (auto) 80.4 % (37.0-80.0); Red Blood Cells 2.38 10^6/uL (4.5-5.90); White Blood Cell 6.3 10^3/uL (4.4-10.8)
[2021-07-12 07:56] LABS: BUN/Creatinine Ratio 29.2; Calcium 8.3 mg/dL (8.5-10.1); Potassium 4.7 mmol/L (3.5-5.1)
[2021-07-12 09:00] VITALS: BP 149/71
[2021-07-12] MEDS: levoFLOXacin 250MG 50 ML IV SCH (10:13)
[2021-07-12] MEDS: PANTOPRAZOLE 40 MG TAB PO SCH (10:13)
[2021-07-12] MEDS: AMIODARONE HCL 200 MG TAB PO SCH ×2 (10:13→22:56)
[2021-07-12] MEDS: ISOSORBIDE MONONITRATE ER 60 MG TAB PO SCH (10:13)
[2021-07-12] MEDS: CARVEDILOL 12.5 MG TAB PO SCH ×2 (10:13→22:57)
[2021-07-12 13:07] VITALS: BP 130/49
[2021-07-12] MEDS ORDERED: FUROSEMIDE 20 MG/2 ML VIAL IV ONE (15:45)
[2021-07-12 16:25] VITALS: BP 151/59
[2021-07-12 22:00] VITALS: BP 150/59
[2021-07-12] MEDS: ATORVASTATIN 20 MG TAB PO SCH (22:58)
[2021-07-13] MEDS: hydrALAZINE HCL 25 MG TAB PO SCH ×4 (00:04→21:13)
[2021-07-13 05:00] VITALS: BP 153/73
[2021-07-13] MEDS: ALBUTEROL SULF 2.5 MG/0.5ML(0.5%) NEB SOLN NEB SCH ×5 (05:45→22:31)
[2021-07-13] MEDS: IPRATROPIUM BROM 0.5 MG/2.5ML INH SOL NEB SCH ×5 (05:45→22:32)
[2021-07-13 05:58] LABS: Eosinophils # (auto) 0.3 10 ^3/uL (0-0.8); Monocytes # (auto) 0.5 10 ^3/uL (0-1.3); White Blood Cell 6.5 10^3/uL (4.4-10.8)
[2021-07-13 06:01] LABS: Basophils # (auto) 0.1 10 ^3/uL (0-0.2); Basophils % (auto) 0.8 % (0.0-2.0); Eosinophils % (auto) 4.9 % (0.0-7.0); Hematocrit 23.2 % (41.0-53.0); Hemoglobin 7.5 g/dL (13.5-17.5); Lymphocytes # (auto) 0.4 10 ^3/uL (0.4-5.4); Lymphocytes % (auto) 6.9 % (10.0-50.0); Mean Corpuscular Hemoglobin 29.7 pg (28.0-32.0); Mean Corpuscular Hgb Conc. 32.3 g/dL (32.0-36.0); Mean Corpuscular Volume 91.9 fL (80.0-100.0); Monocytes % (auto) 8.1 % (0.0-12.0); Neutrophils # (auto) 5.1 10 ^3/uL (1.6-8.6); Neutrophils % (auto) 79.3 % (37.0-80.0); Red Blood Cells 2.53 10^6/uL (4.5-5.90); Red Cell Distribution Width 16.4 % (11.8-14.3)
[2021-07-13 06:08] LABS: Calcium 8.2 mg/dL (8.5-10.1); Potassium 4.5 mmol/L (3.5-5.1)
[2021-07-13 06:09] LABS: BUN/Creatinine Ratio 31.4
[2021-07-13 06:11] LABS: INR 1.18 (0.9-1.15); Partial Thromboplastin Time 31.7 sec (23.6-33.0)
[2021-07-13] MEDS: SODIUM CHLOR 0.9% PF (SALINE LOCK) 10ML VIAL/SYR IV SCH ×3 (06:40→21:13)
[2021-07-13] MEDS: ACCU-CHEK COMFORT CURVE STRIP VI SCH ×4 (06:40→21:17)
[2021-07-13] MEDS: InsuLIN REG 1unit/0.01ml Soln (100units/ml) SC SCH ×4 (06:43→21:27)
[2021-07-13 09:00] VITALS: BP 145/71
[2021-07-13] MEDS: AMIODARONE HCL 200 MG TAB PO SCH ×2 (09:52→21:13)
[2021-07-13] MEDS: levoFLOXacin 250MG 50 ML IV SCH (09:52)
[2021-07-13] MEDS: PANTOPRAZOLE 40 MG TAB PO SCH (09:53)
[2021-07-13] MEDS: ISOSORBIDE MONONITRATE ER 60 MG TAB PO SCH (09:53)
[2021-07-13] MEDS: CARVEDILOL 12.5 MG TAB PO SCH ×2 (09:53→21:14)
[2021-07-13 16:56] VITALS: BP 148/61
[2021-07-13] MEDS: ATORVASTATIN 20 MG TAB PO SCH (21:15)
[2021-07-13 22:00] VITALS: BP 151/65
[2021-07-13] MEDS: hydrALAZINE HCL 20 MG/ML VL IV PRN (22:33)
[2021-07-13 23:00] VITALS: BP 138/63
[2021-07-14 04:54] VITALS: BP 143/59
[2021-07-14] MEDS: hydrALAZINE HCL 25 MG TAB PO SCH ×3 (05:00→21:08)
[2021-07-14] MEDS: SODIUM CHLOR 0.9% PF (SALINE LOCK) 10ML VIAL/SYR IV SCH ×3 (05:00→21:07)
[2021-07-14 05:42] LABS: Hematocrit 22.8 % (41.0-53.0); Hemoglobin 7.3 g/dL (13.5-17.5)
[2021-07-14 05:50] LABS: BUN/Creatinine Ratio 32.7; Calcium 8.2 mg/dL (8.5-10.1); Magnesium 2.3 mg/dL (1.6-2.6); Potassium 4.1 mmol/L (3.5-5.1)
[2021-07-14 05:59] LABS: INR 1.21 (0.9-1.15)
[2021-07-14] MEDS: ACCU-CHEK COMFORT CURVE STRIP VI SCH ×4 (06:07→21:09)
[2021-07-14] MEDS: InsuLIN REG 1unit/0.01ml Soln (100units/ml) SC SCH ×4 (06:09→20:58)
[2021-07-14] MEDS: ALBUTEROL SULF 2.5 MG/0.5ML(0.5%) NEB SOLN NEB SCH ×5 (07:37→22:20)
[2021-07-14] MEDS: IPRATROPIUM BROM 0.5 MG/2.5ML INH SOL NEB SCH ×5 (07:37→22:20)
[2021-07-14 09:00] VITALS: BP 147/60
[2021-07-14] MEDS: levoFLOXacin 250MG 50 ML IV SCH (09:09)
[2021-07-14] MEDS: PANTOPRAZOLE 40 MG TAB PO SCH (09:09)
[2021-07-14] MEDS: AMIODARONE HCL 200 MG TAB PO SCH ×2 (09:09→21:08)
[2021-07-14] MEDS: CARVEDILOL 12.5 MG TAB PO SCH ×2 (09:10→21:08)
[2021-07-14] MEDS: ISOSORBIDE MONONITRATE ER 60 MG TAB PO SCH (09:11)
[2021-07-14] MEDS ORDERED: FUROSEMIDE 20 MG/2 ML VIAL IV ONE (09:15)
[2021-07-14 13:00] VITALS: BP 123/51
[2021-07-14 13:54] VITALS: BP 123/57
[2021-07-14 17:00] VITALS: BP 137/64
[2021-07-14] MEDS: ATORVASTATIN 20 MG TAB PO SCH (21:09)
[2021-07-14] MEDS: HYDROcodone-ACET 5/325MG TAB PO PRN (21:38)
[2021-07-14 21:47] VITALS: BP 134/61
[2021-07-15 02:31] VITALS: BP 128/53
[2021-07-15] MEDS: HYDROcodone-ACET 5/325MG TAB PO PRN ×2 (04:06→22:42)
[2021-07-15 05:00] VITALS: BP 140/65
[2021-07-15] MEDS: hydrALAZINE HCL 25 MG TAB PO SCH ×3 (05:01→22:40)
[2021-07-15] MEDS: SODIUM CHLOR 0.9% PF (SALINE LOCK) 10ML VIAL/SYR IV SCH ×3 (05:02→22:40)
[2021-07-15 05:59] LABS: Hematocrit 22.6 % (41.0-53.0); Hemoglobin 7.3 g/dL (13.5-17.5)
[2021-07-15] MEDS: ALBUTEROL SULF 2.5 MG/0.5ML(0.5%) NEB SOLN NEB SCH ×5 (06:00→21:59)
[2021-07-15] MEDS: IPRATROPIUM BROM 0.5 MG/2.5ML INH SOL NEB SCH ×5 (06:00→21:59)
[2021-07-15 06:11] LABS: BUN/Creatinine Ratio 30.4; Calcium 7.9 mg/dL (8.5-10.1); Potassium 4.2 mmol/L (3.5-5.1)
[2021-07-15] MEDS: ACCU-CHEK COMFORT CURVE STRIP VI SCH ×4 (06:12→22:42)
[2021-07-15] MEDS: InsuLIN REG 1unit/0.01ml Soln (100units/ml) SC SCH ×4 (06:12→23:18)
[2021-07-15 06:15] LABS: INR 1.18 (0.9-1.15)
[2021-07-15 09:00] VITALS: BP 126/49
[2021-07-15] MEDS: PANTOPRAZOLE 40 MG TAB PO SCH (09:02)
[2021-07-15] MEDS: CARVEDILOL 12.5 MG TAB PO SCH (09:10)
[2021-07-15] MEDS: ISOSORBIDE MONONITRATE ER 60 MG TAB PO SCH (09:10)
[2021-07-15] MEDS: AMIODARONE HCL 200 MG TAB PO SCH ×2 (09:10→22:41)
[2021-07-15 12:42] VITALS: BP 111/45
[2021-07-15 17:00] VITALS: BP 138/58
[2021-07-15 22:00] VITALS: BP 145/65
[2021-07-15] MEDS: ATORVASTATIN 20 MG TAB PO SCH (22:41)
[2021-07-15] MEDS: CARVEDILOL 3.125 MG TAB PO SCH (23:12)
[2021-07-16 05:00] VITALS: BP 140/61
[2021-07-16] MEDS: SODIUM CHLOR 0.9% PF (SALINE LOCK) 10ML VIAL/SYR IV SCH ×3 (05:11→23:16)
[2021-07-16] MEDS: hydrALAZINE HCL 25 MG TAB PO SCH ×3 (05:12→22:50)
[2021-07-16] MEDS: HYDROcodone-ACET 5/325MG TAB PO PRN ×3 (05:15→22:53)
[2021-07-16 05:51] LABS: BUN/Creatinine Ratio 28.6; Calcium 8.1 mg/dL (8.5-10.1); Potassium 4.3 mmol/L (3.5-5.1)
[2021-07-16 05:53] LABS: INR 1.17 (0.9-1.15)
[2021-07-16] MEDS: ALBUTEROL SULF 2.5 MG/0.5ML(0.5%) NEB SOLN NEB SCH ×5 (06:33→22:00)
[2021-07-16] MEDS: IPRATROPIUM BROM 0.5 MG/2.5ML INH SOL NEB SCH ×5 (06:33→22:00)
[2021-07-16] MEDS: ACCU-CHEK COMFORT CURVE STRIP VI SCH ×4 (06:39→23:14)
[2021-07-16] MEDS: InsuLIN REG 1unit/0.01ml Soln (100units/ml) SC SCH ×4 (06:40→23:15)
[2021-07-16 09:03] VITALS: BP 144/58
[2021-07-16] MEDS: PANTOPRAZOLE 40 MG TAB PO SCH (09:28)
[2021-07-16] MEDS: AMIODARONE HCL 200 MG TAB PO SCH ×2 (09:28→22:50)
[2021-07-16] MEDS: FUROSEMIDE 40 MG TAB PO SCH (09:28)
[2021-07-16] MEDS: ISOSORBIDE MONONITRATE ER 60 MG TAB PO SCH (09:29)
[2021-07-16] MEDS: CARVEDILOL 3.125 MG TAB PO SCH ×2 (09:29→22:51)
[2021-07-16 12:53] VITALS: BP 122/63
[2021-07-16 16:29] VITALS: BP 136/71
[2021-07-16] MEDS: ATORVASTATIN 20 MG TAB PO SCH (22:52)
[2021-07-17 04:41] VITALS: BP 156/73
[2021-07-17] MEDS: SODIUM CHLOR 0.9% PF (SALINE LOCK) 10ML VIAL/SYR IV SCH ×3 (06:08→22:04)
[2021-07-17] MEDS: ACCU-CHEK COMFORT CURVE STRIP VI SCH ×4 (06:09→22:07)
[2021-07-17] MEDS: hydrALAZINE HCL 25 MG TAB PO SCH ×3 (06:09→22:06)
[2021-07-17] MEDS: InsuLIN REG 1unit/0.01ml Soln (100units/ml) SC SCH ×4 (06:12→22:08)
[2021-07-17 06:26] LABS: Calcium 8.8 mg/dL (8.5-10.1); Potassium 4.7 mmol/L (3.5-5.1)
[2021-07-17 06:30] LABS: BUN/Creatinine Ratio 26.1
[2021-07-17] MEDS: IPRATROPIUM BROM 0.5 MG/2.5ML INH SOL NEB SCH ×6 (06:59→21:46)
[2021-07-17] MEDS: ALBUTEROL SULF 2.5 MG/0.5ML(0.5%) NEB SOLN NEB SCH ×6 (06:59→21:46)
[2021-07-17 09:00] VITALS: BP 143/70
[2021-07-17] MEDS: CARVEDILOL 3.125 MG TAB PO SCH ×2 (09:44→22:07)
[2021-07-17] MEDS: AMIODARONE HCL 200 MG TAB PO SCH ×2 (09:44→22:06)
[2021-07-17] MEDS: ISOSORBIDE MONONITRATE ER 60 MG TAB PO SCH (09:45)
[2021-07-17] MEDS: PANTOPRAZOLE 40 MG TAB PO SCH (09:45)
[2021-07-17] MEDS: FUROSEMIDE 40 MG TAB PO SCH (09:45)
[2021-07-17 13:00] VITALS: BP 124/52
[2021-07-17 15:42] VITALS: BP 124/52
[2021-07-17 16:23] VITALS: BP 144/54
[2021-07-17 22:00] VITALS: BP 141/70
[2021-07-17] MEDS: ATORVASTATIN 20 MG TAB PO SCH (22:07)
[2021-07-17] MEDS: MORPHINE SULFATE INJECTION 2 MG/ML SYRG IV PRN (22:25)
[2021-07-18] VITALS (7 sets, daily range): BP systolic 123–153; BP diastolic 50–70
[2021-07-18] MEDS: HYDROcodone-ACET 5/325MG TAB PO PRN (01:08)
[2021-07-18] MEDS: SODIUM CHLOR 0.9% PF (SALINE LOCK) 10ML VIAL/SYR IV SCH ×3 (06:08→21:44)
[2021-07-18] MEDS: hydrALAZINE HCL 25 MG TAB PO SCH ×3 (06:09→21:45)
[2021-07-18] MEDS: ACCU-CHEK COMFORT CURVE STRIP VI SCH ×4 (06:09→22:10)
[2021-07-18] MEDS: IPRATROPIUM BROM 0.5 MG/2.5ML INH SOL NEB SCH ×5 (06:25→22:29)
[2021-07-18] MEDS: ALBUTEROL SULF 2.5 MG/0.5ML(0.5%) NEB SOLN NEB SCH ×5 (06:25→22:29)
[2021-07-18] MEDS: InsuLIN REG 1unit/0.01ml Soln (100units/ml) SC SCH ×4 (06:32→22:13)
[2021-07-18] MEDS: CARVEDILOL 3.125 MG TAB PO SCH ×2 (09:07→21:46)
[2021-07-18] MEDS: AMIODARONE HCL 200 MG TAB PO SCH ×2 (09:07→21:46)
[2021-07-18] MEDS: FUROSEMIDE 40 MG TAB PO SCH (09:08)
[2021-07-18] MEDS: ISOSORBIDE MONONITRATE ER 60 MG TAB PO SCH (09:08)
[2021-07-18] MEDS: PANTOPRAZOLE 40 MG TAB PO SCH (09:08)
[2021-07-18] MEDS ORDERED: SODIUM FERR GLUC 62.5MG/5ML 125 MG in SODIUM CHL 0.9% 100 ML IV ONE (11:45)
[2021-07-18 15:02] LABS: Hematocrit 19.7 % (41.0-53.0)
[2021-07-18 15:14] LABS: Hemoglobin 6.4 g/dL (13.5-17.5)
[2021-07-18 15:16] LABS: BUN/Creatinine Ratio 19.5; Calcium 7.8 mg/dL (8.5-10.1); Potassium 4.2 mmol/L (3.5-5.1)
[2021-07-18] MEDS: ATORVASTATIN 20 MG TAB PO SCH (21:46)
[2021-07-19] MEDS: HYDROcodone-ACET 5/325MG TAB PO PRN (01:23)
[2021-07-19 03:54] VITALS: BP 120/57
[2021-07-19 05:00] VITALS: BP 145/62
[2021-07-19] MEDS: SODIUM CHLOR 0.9% PF (SALINE LOCK) 10ML VIAL/SYR IV SCH ×3 (05:46→21:43)
[2021-07-19] MEDS: InsuLIN REG 1unit/0.01ml Soln (100units/ml) SC SCH ×4 (06:20→22:27)
[2021-07-19] MEDS: hydrALAZINE HCL 25 MG TAB PO SCH ×3 (06:24→22:22)
[2021-07-19] MEDS: ACCU-CHEK COMFORT CURVE STRIP VI SCH ×4 (06:24→22:29)
[2021-07-19] MEDS: IPRATROPIUM BROM 0.5 MG/2.5ML INH SOL NEB SCH ×5 (07:03→22:00)
[2021-07-19] MEDS: ALBUTEROL SULF 2.5 MG/0.5ML(0.5%) NEB SOLN NEB SCH ×5 (07:03→22:00)
[2021-07-19 07:18] LABS: Basophils # (auto) 0.1 10 ^3/uL (0-0.2); Eosinophils # (auto) 0.5 10 ^3/uL (0-0.8); Monocytes # (auto) 0.5 10 ^3/uL (0-1.3)
[2021-07-19 07:20] LABS: Basophils % (auto) 1.5 % (0.0-2.0); Eosinophils % (auto) 7.5 % (0.0-7.0); Hematocrit 23.4 % (41.0-53.0); Hemoglobin 7.8 g/dL (13.5-17.5); Lymphocytes # (auto) 0.9 10 ^3/uL (0.4-5.4); Mean Corpuscular Hemoglobin 29.9 pg (28.0-32.0); Mean Corpuscular Hgb Conc. 33.5 g/dL (32.0-36.0); Mean Corpuscular Volume 89.1 fL (80.0-100.0); Monocytes % (auto) 8.4 % (0.0-12.0); Neutrophils # (auto) 4.2 10 ^3/uL (1.6-8.6); Neutrophils % (auto) 68.6 % (37.0-80.0); Nucleated Red Blood Cells % 0.1 %; Red Blood Cells 2.62 10^6/uL (4.5-5.90); Red Cell Distribution Width 16.2 % (11.8-14.3); White Blood Cell 6.1 10^3/uL (4.4-10.8)
[2021-07-19 07:40] LABS: BUN/Creatinine Ratio 18.6
[2021-07-19 09:00] VITALS: BP 151/74
[2021-07-19] MEDS: AMIODARONE HCL 200 MG TAB PO SCH ×2 (10:04→22:23)
[2021-07-19] MEDS: FUROSEMIDE 40 MG TAB PO SCH (10:05)
[2021-07-19] MEDS: PANTOPRAZOLE 40 MG TAB PO SCH (10:05)
[2021-07-19] MEDS: CARVEDILOL 3.125 MG TAB PO SCH ×3 (10:05→22:30)
[2021-07-19] MEDS: ISOSORBIDE MONONITRATE ER 60 MG TAB PO SCH (10:05)
[2021-07-19] MEDS ORDERED: SODIUM FERR GLUC 62.5MG/5ML 125 MG in SODIUM CHL 0.9% 100 ML IV ONE (10:15)
[2021-07-19 12:56] VITALS: BP 149/66
[2021-07-19 17:00] VITALS: BP 135/63
[2021-07-19 22:00] VITALS: BP 154/69
[2021-07-19] MEDS: ATORVASTATIN 20 MG TAB PO SCH (22:24)
[2021-07-20] VITALS (7 sets, daily range): BP systolic 117–161; BP diastolic 61–95
[2021-07-20] MEDS: HYDROcodone-ACET 5/325MG TAB PO PRN ×3 (00:30→22:06)
[2021-07-20 05:56] LABS: Hematocrit 24.9 % (41.0-53.0); Hemoglobin 8.4 g/dL (13.5-17.5)
[2021-07-20] MEDS: SODIUM CHLOR 0.9% PF (SALINE LOCK) 10ML VIAL/SYR IV SCH ×3 (06:00→22:06)
[2021-07-20] MEDS: hydrALAZINE HCL 25 MG TAB PO SCH ×3 (06:00→21:59)
[2021-07-20 06:20] LABS: BUN/Creatinine Ratio 17.3; Calcium 8.2 mg/dL (8.5-10.1); Potassium 4.1 mmol/L (3.5-5.1)
[2021-07-20] MEDS: ACCU-CHEK COMFORT CURVE STRIP VI SCH ×4 (06:35→22:02)
[2021-07-20] MEDS: InsuLIN REG 1unit/0.01ml Soln (100units/ml) SC SCH ×4 (06:35→21:57)
[2021-07-20] MEDS: IPRATROPIUM BROM 0.5 MG/2.5ML INH SOL NEB SCH ×6 (07:58→22:53)
[2021-07-20] MEDS: ALBUTEROL SULF 2.5 MG/0.5ML(0.5%) NEB SOLN NEB SCH ×6 (07:58→22:53)
[2021-07-20] MEDS: AMIODARONE HCL 200 MG TAB PO SCH ×2 (10:10→21:58)
[2021-07-20] MEDS: ISOSORBIDE MONONITRATE ER 60 MG TAB PO SCH (10:10)
[2021-07-20] MEDS: FUROSEMIDE 40 MG TAB PO SCH (10:11)
[2021-07-20] MEDS: PANTOPRAZOLE 40 MG TAB PO SCH (10:11)
[2021-07-20] MEDS ORDERED: CARV6.25 PO (13:12)
[2021-07-20] MEDS ORDERED: AMIO200T33 PO (13:12)
[2021-07-20] MEDS ORDERED: ISOS1TAB28 PO (13:12)
[2021-07-20] MEDS ORDERED: HYDR50TA15 PO (13:12)
[2021-07-20] MEDS ORDERED: FURO1TAB31 PO (13:12)
[2021-07-20] MEDS: CARVEDILOL 3.125 MG TAB PO SCH (21:59)
[2021-07-20] MEDS: ATORVASTATIN 20 MG TAB PO SCH (21:59)
[2021-07-21 05:00] VITALS: BP 156/68
[2021-07-21] MEDS: IPRATROPIUM BROM 0.5 MG/2.5ML INH SOL NEB SCH ×3 (05:44→14:49)
[2021-07-21] MEDS: ALBUTEROL SULF 2.5 MG/0.5ML(0.5%) NEB SOLN NEB SCH ×3 (05:44→14:49)
[2021-07-21] MEDS: SODIUM CHLOR 0.9% PF (SALINE LOCK) 10ML VIAL/SYR IV SCH ×2 (06:25→14:00)
[2021-07-21] MEDS: InsuLIN REG 1unit/0.01ml Soln (100units/ml) SC SCH ×2 (06:25→11:30)
[2021-07-21] MEDS: ACCU-CHEK COMFORT CURVE STRIP VI SCH ×2 (06:25→11:30)
[2021-07-21] MEDS: hydrALAZINE HCL 25 MG TAB PO SCH ×2 (06:30→14:00)
[2021-07-21 09:00] VITALS: BP 163/72
[2021-07-21] MEDS: PANTOPRAZOLE 40 MG TAB PO SCH (10:00)
[2021-07-21] MEDS: CARVEDILOL 3.125 MG TAB PO SCH (10:00)
[2021-07-21] MEDS: ISOSORBIDE MONONITRATE ER 60 MG TAB PO SCH (10:00)
[2021-07-21] MEDS: AMIODARONE HCL 200 MG TAB PO SCH (10:00)
[2021-07-21] MEDS: FUROSEMIDE 40 MG TAB PO SCH (10:00)
[2021-07-21 13:05] VITALS: BP 144/65
[2021-07-21 17:02] VITALS: BP 119/58
== END 2021-07-21 17:20 | disposition home health service (06) | DRG 280 ==
LOC: EDBD 06:44 → ER 06:44 → TELE 09:31 → TELE-WESTW 13:57 → ICU WEST 07-04 23:02 → DOU IN ICU 07-07 07:15 → TELE-CENTR 07-09 09:37
PROVIDERS: ADMIT Nurse Practitioner Acute Care; ATTEND Internal Medicine
PROC: 5A12012 Performance of Cardiac Output, Single, Manual (ICD-10-PCS; 2021-07-04)
PROC: 5A1945Z Respiratory Ventilation, 24-96 Consecutive Hours (ICD-10-PCS; principal; 2021-07-05)
PROC: 0BH17EZ Insertion of Endotracheal Airway into Trachea, Via Natural or Artificial Opening (ICD-10-PCS; 2021-07-05)
PROC: 5A09357 Assistance with Respiratory Ventilation, Less than 24 Consecutive Hours, Continuous Positive Airway Pressure (ICD-10-PCS; 2021-07-08)
PROC: 5A09357 Assistance with Respiratory Ventilation, Less than 24 Consecutive Hours, Continuous Positive Airway Pressure (ICD-10-PCS; 2021-07-11)
PROC: 30233N1 Transfusion of Nonautologous Red Blood Cells into Peripheral Vein, Percutaneous Approach (ICD-10-PCS; 2021-07-18)
DX: I13.0 Hypertensive heart and chronic kidney disease with heart failure and stage 1 through stage 4 chronic kidney disease, or unspecified chronic kidney disease (principal); J69.0 Pneumonitis due to inhalation of food and vomit; I21.A1 Myocardial infarction type 2; J96.00 Acute respiratory failure, unspecified whether with hypoxia or hypercapnia; I50.33 Acute on chronic diastolic (congestive) heart failure; N17.0 Acute kidney failure with tubular necrosis; N39.0 Urinary tract infection, site not specified; N18.4 Chronic kidney disease, stage 4 (severe); I47.2 Ventricular tachycardia; E87.0 Hyperosmolality and hypernatremia; Z20.822 Contact with and (suspected) exposure to COVID-19; I27.20 Pulmonary hypertension, unspecified; R00.1 Bradycardia, unspecified; D46.9 Myelodysplastic syndrome, unspecified; R55 Syncope and collapse; E11.22 Type 2 diabetes mellitus with diabetic chronic kidney disease; E66.9 Obesity, unspecified; E87.5 Hyperkalemia; I95.9 Hypotension, unspecified; E78.5 Hyperlipidemia, unspecified; I25.10 Atherosclerotic heart disease of native coronary artery without angina pectoris; B96.4 Proteus (mirabilis) (morganii) as the cause of diseases classified elsewhere; B96.1 Klebsiella pneumoniae [K. pneumoniae] as the cause of diseases classified elsewhere; D63.1 Anemia in chronic kidney disease; J44.9 Chronic obstructive pulmonary disease, unspecified; Z79.4 Long term (current) use of insulin; Z79.84 Long term (current) use of oral hypoglycemic drugs; Z79.899 Other long term (current) drug therapy; Z85.038 Personal history of other malignant neoplasm of large intestine; Z95.2 Presence of prosthetic heart valve; Z68.30 Body mass index [BMI] 30.0-30.9, adult
CPT/HCPCS: 36415; 36600; 70450; 71045; 76775; 80048; 80053; 80061; 81001; 82270; 82306; 82570; 82805; 82962; 83036; 83735; 83880; 84100; 84132; 84156; 84300; 84443; 84484; 85014; 85018; 85025; 85379; 85610; 85730; 86850; 86900; 86901; 86920; 87040; 87070; 87081; 87086; 87088; 87186; 87205; 87426; 92610; 92950; 93005; 93306; 93970; 93971; 94002; 94003; 94640; 94660; 96374; 97110; 97116; 97163; 97530; C9113; G0378; J0696; J1815; J1956; J2185; J2704

== ENCOUNTER → 2021-08-17 | Outpatient (CLI) | payer MEDICARE, OTHER ==
[~2021-08-17] MED LIST changes: +AMIO200T33 PO; -CARV25TA55 PO; +CARV6.25 PO; +FURO1TAB31 PO; -FURO1TAB33 PO; +HYDR50TA15 PO; +ISOS1TAB28 PO; -LISI40TA11 PO; -MINO10TA2 PO
== END | disposition home or self-care (01) ==
LOC: XYW 13:33
PROVIDERS: ATTEND Internal Medicine
DX: I07.1 Rheumatic tricuspid insufficiency (principal); I51.7 Cardiomegaly; R00.1 Bradycardia, unspecified; E11.9 Type 2 diabetes mellitus without complications
CPT/HCPCS: 93306

== ENCOUNTER 2021-12-17 17:32 | Inpatient (IN) | payer MEDICARE, OTHER ==
[~2021-12-17] VITALS: Ht 165.1 cm; Wt 78.5 kg
[~2021-12-17 17:32] MED LIST changes: -AMIO200T33 PO; -CARV6.25 PO; -HYDR50TA15 PO; -ISOS1TAB28 PO
[2021-12-17 18:56] LABS: Basophils # (auto) 0 10 ^3/uL (0-0.2); Basophils % (auto) 0.6 % (0.0-2.0); Eosinophils # (auto) 0.2 10 ^3/uL (0-0.8); Eosinophils % (auto) 3.2 % (0.0-7.0); Hematocrit 33.1 % (41.0-53.0); Hemoglobin 11.2 g/dL (13.5-17.5); Lymphocytes # (auto) 1.8 10 ^3/uL (0.4-5.4); Lymphocytes % (auto) 32.1 % (10.0-50.0); Mean Corpuscular Hemoglobin 31.3 pg (28.0-32.0); Mean Corpuscular Volume 92.2 fL (80.0-100.0); Monocytes # (auto) 0.6 10 ^3/uL (0-1.3); Monocytes % (auto) 10.1 % (0.0-12.0); Neutrophils # (auto) 3.1 10 ^3/uL (1.6-8.6); Nucleated Red Blood Cells % 0.1 %; Red Blood Cells 3.59 10^6/uL (4.5-5.90); Red Cell Distribution Width 15.4 % (11.8-14.3); White Blood Cell 5.8 10^3/uL (4.4-10.8)
[2021-12-17 19:19] LABS: Albumin 3.1 g/dL (3.4-5.0); Calcium 8.5 mg/dL (8.5-10.1); Magnesium 2.8 mg/dL (1.6-2.6); Potassium 4.6 mmol/L (3.5-5.1)
[2021-12-17 19:21] LABS: BUN/Creatinine Ratio 21.5
[2021-12-17 19:37] LABS: Bilirubin, Total 0.5 mg/dL (0.2-1.0); Total Protein 6.8 g/dL (6.4-8.2)
[2021-12-17] MEDS ORDERED: MORPHINE SULFATE INJECTION 2 MG/ML SYRG IV PRN (22:00)
[2021-12-17] MEDS ORDERED: NITROGLYCERIN 0.4 MG SL TAB SL PRN (22:00)
[2021-12-17] MEDS: SODIUM CHLOR 0.9% PF (SALINE LOCK) 10ML VIAL/SYR IV SCH (22:00)
[2021-12-17] MEDS ORDERED: ALBUTEROL SULF HFA 90MCG INH 200DOSE IN PRN (22:15)
[2021-12-17 22:29] VITALS: BP 169/67
[2021-12-17] MEDS ORDERED: ALBUTEROL SULF 2.5 MG/0.5ML(0.5%) NEB SOLN NEB PRN (22:30)
[2021-12-17 22:40] LABS: Cholesterol 150 mg/dL (< 200)
[2021-12-17 22:42] LABS: HDL Cholesterol 46 mg/dL (40-59); LDL Cholesterol 70 mg/dL (< 100); Triglycerides 231 mg/dL (< 150)
[2021-12-17 22:55] LABS: Urine Bacteria FEW /hpf (None Seen); Urine Blood TRACE /uL (Negative); Urine Hyaline Cast FEW /lpf (0 - 2); Urine Specific Gravity 1.009 (1.001-1.035); Urine WBC <1 /hpf (0 - 3)
[2021-12-17 23:11] LABS: Protein, Urine 222.3 mg/dL (0.0-11.9)
[2021-12-18] VITALS: BP 178/60
[2021-12-18] MEDS ORDERED: LINA5TAB PO (02:30)
[2021-12-18] MEDS ORDERED: INSUINJ18 SC (02:33)
[2021-12-18] MEDS ORDERED: HYDR25TA87 PO (02:33)
[2021-12-18] MEDS ORDERED: CARV3.1240 PO (02:33)
[2021-12-18] MEDS ORDERED: GLIM4TAB42 PO (02:33)
[2021-12-18] MEDS ORDERED: ROSU20TA14 PO (02:36)
[2021-12-18] MEDS ORDERED: ISOS20TA49 PO (02:36)
[2021-12-18] MEDS ORDERED: AMIO200T33 PO (02:36)
[2021-12-18] MEDS ORDERED: FERR27TA2 PO (02:36)
[2021-12-18 05:00] VITALS: BP 135/52
[2021-12-18] MEDS: SODIUM CHLOR 0.9% PF (SALINE LOCK) 10ML VIAL/SYR IV SCH ×3 (06:22→20:57)
[2021-12-18 06:45] LABS: Basophils # (auto) 0 10 ^3/uL (0-0.2); Basophils % (auto) 0.6 % (0.0-2.0); Eosinophils # (auto) 0.2 10 ^3/uL (0-0.8); Eosinophils % (auto) 3.7 % (0.0-7.0); Hematocrit 32.3 % (41.0-53.0); Hemoglobin 11.1 g/dL (13.5-17.5); Lymphocytes # (auto) 1.5 10 ^3/uL (0.4-5.4); Lymphocytes % (auto) 27.5 % (10.0-50.0); Mean Corpuscular Hemoglobin 31.3 pg (28.0-32.0); Mean Corpuscular Hgb Conc. 34.4 g/dL (32.0-36.0); Mean Corpuscular Volume 91.1 fL (80.0-100.0); Monocytes # (auto) 0.6 10 ^3/uL (0-1.3); Monocytes % (auto) 10.7 % (0.0-12.0); Neutrophils # (auto) 3.2 10 ^3/uL (1.6-8.6); Neutrophils % (auto) 57.5 % (37.0-80.0); Nucleated Red Blood Cells % 0.1 %; Red Blood Cells 3.55 10^6/uL (4.5-5.90); Red Cell Distribution Width 15.3 % (11.8-14.3); White Blood Cell 5.6 10^3/uL (4.4-10.8)
[2021-12-18 07:03] LABS: Potassium 3.4 mmol/L (3.5-5.1)
[2021-12-18 07:10] LABS: % Iron Saturation 26.5 % (20-55)
[2021-12-18 07:11] LABS: Albumin 2.9 g/dL (3.4-5.0); BUN/Creatinine Ratio 21.3; Calcium 8.7 mg/dL (8.5-10.1)
[2021-12-18 07:14] LABS: Bilirubin, Total 0.5 mg/dL (0.2-1.0); Total Protein 6.2 g/dL (6.4-8.2)
[2021-12-18 09:00] VITALS: BP 145/56
[2021-12-18] MEDS ORDERED: PANTOPRAZOLE 40 MG TAB PO SCH (10:00)
[2021-12-18] MEDS ORDERED: ATORVASTATIN 20 MG TAB PO SCH (10:00)
[2021-12-18 13:00] VITALS: BP 147/64
[2021-12-18] MEDS ORDERED: hydrALAZINE HCL 20 MG/ML VL IV PRN (14:30)
[2021-12-18] MEDS ORDERED: IPRATROPIUM BROM 0.5 MG/2.5ML INH SOL NEB PRN (14:30)
[2021-12-18] MEDS ORDERED: ALBUTEROL SULF 2.5 MG/0.5ML(0.5%) NEB SOLN NEB PRN (14:30)
[2021-12-18] MEDS ORDERED: DEXTROSE (50%) 50ML SYRG IV PRN (14:30)
[2021-12-18 17:00] VITALS: BP 154/71
[2021-12-18] MEDS: ACCU-CHEK COMFORT CURVE STRIP VI SCH (17:54)
[2021-12-18] MEDS: InsuLIN REG 1unit/0.01ml Soln (100units/ml) SC SCH (17:55)
[2021-12-18] MEDS: ATORVASTATIN 20 MG TAB PO SCH (20:57)
[2021-12-18] MEDS: hydrALAZINE HCL 25 MG TAB PO SCH (20:57)
[2021-12-18 22:00] VITALS: BP 153/78
[2021-12-19] MEDS: ACCU-CHEK COMFORT CURVE STRIP VI SCH ×5 (00:17→23:44)
[2021-12-19 05:00] VITALS: BP 137/63
[2021-12-19] MEDS: SODIUM CHLOR 0.9% PF (SALINE LOCK) 10ML VIAL/SYR IV SCH ×3 (05:39→22:01)
[2021-12-19] MEDS: InsuLIN REG 1unit/0.01ml Soln (100units/ml) SC SCH ×5 (05:40→23:45)
[2021-12-19 06:39] LABS: BUN/Creatinine Ratio 20.1; Calcium 8.8 mg/dL (8.5-10.1); Potassium 4.3 mmol/L (3.5-5.1)
[2021-12-19 09:00] VITALS: BP 154/61
[2021-12-19] MEDS: ASPirin-EC 81 mg tab PO SCH (09:27)
[2021-12-19] MEDS: hydrALAZINE HCL 25 MG TAB PO SCH ×2 (09:28→22:13)
[2021-12-19] MEDS: ENOXAPARIN SOD 30 MG/0.3 ML SYRINGE SC SCH (09:29)
[2021-12-19] MEDS: AMIODARONE HCL 200 MG TAB PO SCH (09:29)
[2021-12-19 13:00] VITALS: BP 151/65
[2021-12-19] MEDS ORDERED: ISOSORBIDE MONONITRATE ER 60 MG TAB PO ONE (13:07)
[2021-12-19 16:00] VITALS: BP 112/52
[2021-12-19 22:00] VITALS: BP 120/53
[2021-12-19] MEDS: ATORVASTATIN 20 MG TAB PO SCH (22:13)
[2021-12-20 05:00] VITALS: BP 127/43
[2021-12-20] MEDS: ACCU-CHEK COMFORT CURVE STRIP VI SCH ×4 (05:12→23:45)
[2021-12-20] MEDS: SODIUM CHLOR 0.9% PF (SALINE LOCK) 10ML VIAL/SYR IV SCH ×3 (05:18→21:16)
[2021-12-20] MEDS: InsuLIN REG 1unit/0.01ml Soln (100units/ml) SC SCH ×4 (05:56→23:50)
[2021-12-20 07:01] LABS: Calcium 9.1 mg/dL (8.5-10.1); Potassium 5.4 mmol/L (3.5-5.1)
[2021-12-20 07:05] LABS: BUN/Creatinine Ratio 20.1
[2021-12-20 09:22] VITALS: BP 136/63
[2021-12-20] MEDS: ASPirin-EC 81 mg tab PO SCH (10:32)
[2021-12-20] MEDS: AMIODARONE HCL 200 MG TAB PO SCH (10:33)
[2021-12-20] MEDS: hydrALAZINE HCL 25 MG TAB PO SCH ×2 (10:33→21:17)
[2021-12-20] MEDS: ISOSORBIDE MONONITRATE ER 60 MG TAB PO SCH (10:33)
[2021-12-20] MEDS: ENOXAPARIN SOD 30 MG/0.3 ML SYRINGE SC SCH (10:34)
[2021-12-20 12:36] VITALS: BP 136/57
[2021-12-20 16:55] VITALS: BP 139/52
[2021-12-20] MEDS: ATORVASTATIN 20 MG TAB PO SCH (21:17)
[2021-12-20 22:00] VITALS: BP 145/48
[2021-12-21 01:07] VITALS: BP 145/48
[2021-12-21] MEDS: InsuLIN REG 1unit/0.01ml Soln (100units/ml) SC SCH ×3 (06:00→17:47)
[2021-12-21] MEDS: SODIUM CHLOR 0.9% PF (SALINE LOCK) 10ML VIAL/SYR IV SCH ×3 (06:05→21:43)
[2021-12-21] MEDS: ACCU-CHEK COMFORT CURVE STRIP VI SCH ×3 (06:06→17:42)
[2021-12-21 08:00] VITALS: BP 169/70
[2021-12-21 09:00] VITALS: BP 169/70
[2021-12-21] MEDS: hydrALAZINE HCL 25 MG TAB PO SCH ×2 (11:08→21:43)
[2021-12-21] MEDS: ASPirin-EC 81 mg tab PO SCH (11:09)
[2021-12-21] MEDS: AMIODARONE HCL 200 MG TAB PO SCH (11:09)
[2021-12-21] MEDS: ISOSORBIDE MONONITRATE ER 60 MG TAB PO SCH (11:10)
[2021-12-21 13:00] VITALS: BP 164/57
[2021-12-21] MEDS ORDERED: PANTOPRAZOLE 40 MG TAB PO ONE (13:15)
[2021-12-21] MEDS ORDERED: CHOLECALCIFEROL (VITD3) 2,000 UNIT CAP/TAB PO ONE (13:15)
[2021-12-21] MEDS ORDERED: ALBUTEROL SULF 2.5 MG/0.5ML(0.5%) NEB SOLN NEB PRN (13:30)
[2021-12-21] MEDS ORDERED: IPRATROPIUM BROM 0.5 MG/2.5ML INH SOL NEB PRN (13:30)
[2021-12-21] MEDS ORDERED: amLODIPine BESYLATE 5 MG TAB PO ONE (13:30)
[2021-12-21] MEDS ORDERED: PANT40T PO ×2 (16:23→16:28)
[2021-12-21] MEDS ORDERED: GLIM4TAB42 PO (16:23)
[2021-12-21] MEDS ORDERED: INSUINJ18 SC (16:23)
[2021-12-21] MEDS ORDERED: HYDR25TA87 PO (16:23)
[2021-12-21] MEDS ORDERED: ISOS1TAB28 PO (16:23)
[2021-12-21] MEDS ORDERED: CARV3.1240 PO (16:28)
[2021-12-21] MEDS ORDERED: FER325T PO (16:28)
[2021-12-21 16:49] VITALS: BP 132/54
[2021-12-21] MEDS: ATORVASTATIN 20 MG TAB PO SCH (21:44)
[2021-12-21 21:59] VITALS: BP 167/57
[2021-12-21] MEDS: INSULIN LANTUS (GLARGINE) 1 /0.01ml (100units/ml) SC SCH (22:02)
[2021-12-22] VITALS (9 sets, daily range): BP systolic 121–169; BP diastolic 50–74
[2021-12-22] MEDS: ACCU-CHEK COMFORT CURVE STRIP VI SCH ×4 (00:28→17:29)
[2021-12-22] MEDS: InsuLIN REG 1unit/0.01ml Soln (100units/ml) SC SCH ×4 (00:28→17:27)
[2021-12-22] MEDS: SODIUM CHLOR 0.9% PF (SALINE LOCK) 10ML VIAL/SYR IV SCH ×3 (06:06→22:09)
[2021-12-22 06:10] LABS: Basophils # (auto) 0 10 ^3/uL (0-0.2); Basophils % (auto) 0.7 % (0.0-2.0); Eosinophils # (auto) 0.2 10 ^3/uL (0-0.8); Eosinophils % (auto) 4.1 % (0.0-7.0); Hemoglobin 10.8 g/dL (13.5-17.5); Lymphocytes # (auto) 1.5 10 ^3/uL (0.4-5.4); Lymphocytes % (auto) 28.7 % (10.0-50.0); Mean Corpuscular Hemoglobin 31.1 pg (28.0-32.0); Mean Corpuscular Hgb Conc. 33.7 g/dL (32.0-36.0); Mean Corpuscular Volume 92.5 fL (80.0-100.0); Monocytes # (auto) 0.5 10 ^3/uL (0-1.3); Monocytes % (auto) 10.2 % (0.0-12.0); Neutrophils # (auto) 2.9 10 ^3/uL (1.6-8.6); Neutrophils % (auto) 56.3 % (37.0-80.0); Red Blood Cells 3.46 10^6/uL (4.5-5.90); Red Cell Distribution Width 15.3 % (11.8-14.3); White Blood Cell 5.1 10^3/uL (4.4-10.8)
[2021-12-22 06:22] LABS: Albumin 2.8 g/dL (3.4-5.0); BUN/Creatinine Ratio 19.9; Calcium 8.6 mg/dL (8.5-10.1); Potassium 4.3 mmol/L (3.5-5.1)
[2021-12-22 06:24] LABS: Bilirubin, Total 0.6 mg/dL (0.2-1.0); Magnesium 2.7 mg/dL (1.6-2.6); Total Protein 6.1 g/dL (6.4-8.2)
[2021-12-22] MEDS: ISOSORBIDE MONONITRATE ER 60 MG TAB PO SCH (10:00)
[2021-12-22] MEDS: amLODIPine BESYLATE 5 MG TAB PO SCH (10:00)
[2021-12-22] MEDS: hydrALAZINE HCL 25 MG TAB PO SCH ×2 (10:00→22:09)
[2021-12-22] MEDS: ENOXAPARIN SOD 30 MG/0.3 ML SYRINGE SC SCH ×2 (10:00→17:25)
[2021-12-22] MEDS ORDERED: CHOL20007 PO (11:58)
[2021-12-22] MEDS ORDERED: ASPI-378 PO (11:58)
[2021-12-22] MEDS ORDERED: HYDR50TA15 PO (11:58)
[2021-12-22] MEDS ORDERED: MIDAZOLAM HCL 2MG/2ML 2ml VIAL (1mg/ml) IV ONE (13:15)
[2021-12-22] MEDS: AMIODARONE HCL 200 MG TAB PO SCH (17:24)
[2021-12-22] MEDS: ASPirin-EC 81 mg tab PO SCH (17:24)
[2021-12-22] MEDS: PANTOPRAZOLE 40 MG TAB PO SCH (17:24)
[2021-12-22] MEDS: CHOLECALCIFEROL (VITD3) 2,000 UNIT CAP/TAB PO SCH (17:25)
[2021-12-22] MEDS: ATORVASTATIN 20 MG TAB PO SCH (22:09)
[2021-12-22] MEDS: INSULIN LANTUS (GLARGINE) 1 /0.01ml (100units/ml) SC SCH (22:10)
[2021-12-23] MEDS: ACCU-CHEK COMFORT CURVE STRIP VI SCH ×4 (00:12→18:39)
[2021-12-23 05:00] VITALS: BP 134/56
[2021-12-23] MEDS: SODIUM CHLOR 0.9% PF (SALINE LOCK) 10ML VIAL/SYR IV SCH ×2 (05:53→14:44)
[2021-12-23] MEDS: InsuLIN REG 1unit/0.01ml Soln (100units/ml) SC SCH ×4 (05:54→18:00)
[2021-12-23 09:00] VITALS: BP 131/48
[2021-12-23] MEDS ORDERED: RIVAROXABAN 10 MG TAB PO SCH (10:00)
[2021-12-23] MEDS: ENOXAPARIN SOD 30 MG/0.3 ML SYRINGE SC SCH (10:47)
[2021-12-23] MEDS: PANTOPRAZOLE 40 MG TAB PO SCH (10:47)
[2021-12-23] MEDS: ASPirin-EC 81 mg tab PO SCH (10:47)
[2021-12-23] MEDS: ISOSORBIDE MONONITRATE ER 60 MG TAB PO SCH (10:47)
[2021-12-23] MEDS: AMIODARONE HCL 200 MG TAB PO SCH (10:48)
[2021-12-23] MEDS: amLODIPine BESYLATE 5 MG TAB PO SCH (10:48)
[2021-12-23] MEDS: hydrALAZINE HCL 25 MG TAB PO SCH (10:48)
[2021-12-23] MEDS: CHOLECALCIFEROL (VITD3) 2,000 UNIT CAP/TAB PO SCH (10:55)
[2021-12-23] MEDS ORDERED: RIVA10TA PO (11:37)
[2021-12-23 13:00] VITALS: BP 157/71
[2021-12-23 17:00] VITALS: BP 120/48
[2021-12-23 17:09] VITALS: BP 131/48
== END 2021-12-23 18:00 | disposition home health service (06) | DRG 65 ==
LOC: EDBD 17:32 → ER 17:32 → TELE 21:56 → TELE-WESTW 23:26
PROVIDERS: ADMIT Internal Medicine; ATTEND Internal Medicine
PROC: 0CJS8ZZ Inspection of Larynx, Via Natural or Artificial Opening Endoscopic (ICD-10-PCS; principal; 2021-12-17)
DX: I63.133 Cerebral infarction due to embolism of bilateral carotid arteries (principal); I50.32 Chronic diastolic (congestive) heart failure; J96.10 Chronic respiratory failure, unspecified whether with hypoxia or hypercapnia; G81.94 Hemiplegia, unspecified affecting left nondominant side; N18.4 Chronic kidney disease, stage 4 (severe); I13.0 Hypertensive heart and chronic kidney disease with heart failure and stage 1 through stage 4 chronic kidney disease, or unspecified chronic kidney disease; R00.1 Bradycardia, unspecified; I44.7 Left bundle-branch block, unspecified; J44.9 Chronic obstructive pulmonary disease, unspecified; D63.8 Anemia in other chronic diseases classified elsewhere; E11.22 Type 2 diabetes mellitus with diabetic chronic kidney disease; Z20.822 Contact with and (suspected) exposure to COVID-19; E66.9 Obesity, unspecified; D46.9 Myelodysplastic syndrome, unspecified; E55.9 Vitamin D deficiency, unspecified; E78.5 Hyperlipidemia, unspecified; R29.701 NIHSS score 1; D50.9 Iron deficiency anemia, unspecified; I25.10 Atherosclerotic heart disease of native coronary artery without angina pectoris; I48.91 Unspecified atrial fibrillation; Z79.82 Long term (current) use of aspirin; Z79.01 Long term (current) use of anticoagulants; I25.2 Old myocardial infarction; Z79.899 Other long term (current) drug therapy; Z83.3 Family history of diabetes mellitus; Z86.73 Personal history of transient ischemic attack (TIA), and cerebral infarction without residual deficits; Z95.2 Presence of prosthetic heart valve; Z98.42 Cataract extraction status, left eye; Z98.41 Cataract extraction status, right eye; Z68.29 Body mass index [BMI] 29.0-29.9, adult; Z79.02 Long term (current) use of antithrombotics/antiplatelets; Z79.84 Long term (current) use of oral hypoglycemic drugs
CPT/HCPCS: 36415; 70450; 70551; 71045; 76775; 80048; 80053; 80061; 81001; 82306; 82570; 82728; 82962; 83036; 83540; 83550; 83735; 84156; 84300; 84443; 84484; 85025; 93005; 93306; 93886; 97110; 97116; 97163; 97530; 99152; G0378; J1815; J2250